=== PATIENT | male | born 1990 | race Caucasian/White ===

== ENCOUNTER 2017-05-23 19:12 | Observation (INO) | payer MEDICAID ==
[2017-05-23] MEDS ORDERED: Sodium Chloride 0.9% 1,000 ML IV ONE (21:12)
--- NOTE | 2017-05-23 21:12 | C.PDOC ---
History Of Present Illness 26 year old male, whose PMHx includes Crohn's disease, presents to the ED for evaluation of abdominal pain which began a few days ago. Patient states he has been noncompliant with his medications. He denies fever, chills, vomiting, bloody stools. Time Seen by Provider: 05/23/17 21:05 Chief Complaint (Nursing): Abdominal Pain History Per: Patient History/Exam Limitations: no limitations Onset/Duration Of Symptoms: Days Current Symptoms Are (Timing): Still Present Location Of Pain/Discomfort: Diffuse Quality Of Discomfort: "Pain" Associated Symptoms: denies: Fever, Chills, Vomiting Additional History Per: Patient Past Medical History Reviewed: Historical Data, Nursing Documentation, Vital Signs Vital Signs: Last Vital Signs Temp 98.2 F 05/23/17 22:50 Pulse 69 05/23/17 22:50 Resp 20 05/23/17 22:50 BP 98/62 L 05/23/17 22:50 Pulse Ox 98 05/24/17 00:41 - Medical History PMH: Crohn's Disease Surgical History: No Surg Hx Family History: States: Unknown Family Hx - Social History Hx Alcohol Use: No Hx Substance Use: Yes - Immunization History Hx Tetanus Toxoid Vaccination: No Hx Influenza Vaccination: No Hx Pneumococcal Vaccination: No Review Of Systems Constitutional: Negative for: Fever, Chills Gastrointestinal: Positive for: Abdominal Pain. Negative for: Vomiting, Hematochezia Physical Exam - Physical Exam Appears: Non-toxic, No Acute Distress Skin: Normal Color, Warm, Dry Head: Atraumatic, Normacephalic Eye(s): bilateral: Normal Inspection Oral Mucosa: Moist Neck: Supple Chest: Symmetrical, No Deformity, No Tenderness Cardiovascular: Rhythm Regular, No Murmur Respiratory: Normal Breath Sounds, No Rales, No Rhonchi, No Wheezing Gastrointestinal/Abdominal: Soft, Tenderness (mild, nonfocal ), No Guarding, No Rebound Extremity: Normal ROM, Capillary Refill (less than 2 seconds ) Neurological/Psych: Oriented x3, Normal Speech, Normal Cognition ED Course And Treatment - Laboratory Results Result Diagrams: 05/23/17 21:23 05/23/17 21:23 O2 Sat by Pulse Oximetry: 98 (on RA) Pulse Ox Interpretation: Normal - CT Scan/US CT abd/pelvis Other Rad Studies (CT/US): Read By Radiologist, Radiology Report Reviewed CT/US Interpretation: FINDINGS: Lower thorax: No acute findings. . ABDOMEN: Liver: Unremarkable. No mass. Gallbladder and bile ducts: Unremarkable. No calcified stones. No ductal. dilation. Pancreas: Unremarkable. No mass. No ductal dilation. Spleen: Unremarkable. No splenomegaly. Adrenals: Unremarkable. No mass. Kidneys and ureters: Unremarkable. No solid mass. No hydronephrosis. Stomach and bowel: Fluid-filled small bowel loops, some of which are. prominent. Fluid in right colon. Appendix: Retrocecal appendix. . PELVIS: Bladder: Unremarkable. No mass. Reproductive: Unremarkable as visualized. . ABDOMEN and PELVIS: Intraperitoneal space: Small amount of free fluid in pelvis. No free air. Bones/joints: No acute fracture. No dislocation. Soft tissues: Unremarkable. Vasculature: Unremarkable. No abdominal aortic aneurysm. Lymph nodes: Few mildly enlarged right lower quadrant mesenteric lymph nodes. . IMPRESSION: 1. Nonspecific fluid-filled small bowel loops and right colon. Enlarged. mesenteric lymph nodes. Findings consistent with enteritis. 2. Small amount of pelvic ascites. 3. Remainder of findings as above. . Dictated By: Curtis Harvey MD. Dictated Date/Time : 05/23/172302. Signed By: Curtis Harvey MD. Date Signed: 05/23/172302. Transcribed By: [employer]. Transcribe Date/Time: 05/23/172302 - Physician Consult Information Time Consulting Physician Contacted: 23:49 Physician Contacted: Maria Dolores Abkar Outcome Of Conversation: patient accepted for admission for enteritis, IBD Medical Decision Making Medical Decision Making: r/o ibd flare- labs iamging reassess Progress: Bloodwork, urinalysis, CT A/P ordered and reviewed. Toradol IVP and IV Fluids administered. pt reassesed pain improved. case discusse solomon wright. accepts with gi consult for ibd flare. no outpt support or followup Disposition Counseled Patient/Family Regarding: Studies Performed, Diagnosis - Disposition Disposition: HOSPITALIZED Disposition Time: 23:50 Condition: STABLE - Clinical Impression Clinical Impression: IBD (inflammatory bowel disease), Enteritis - Scribe Statement The provider has reviewed the documentation as recorded by the Scribe (Stefania Taylor) Provider Attestation: All medical record entries made by the Scribe were at my direction and personally dictated by me. I have reviewed the chart and agree that the record accurately reflects my personal performance of the history, physical exam, medical decision making, and the department course for this patient. I have also personally directed, reviewed, and agree with the discharge instructions and disposition. Decision To Admit - Pt Status Changed To: Hospital Disposition Of: Observation - InPatient: Physician Admission Certification:: needs gi eval iv steriods - . Bed Request Type: Regular Admitting Physician: Maria Dolores Akbar Patient Diagnosis: IBD (inflammatory bowel disease), Enteritis
[2017-05-23 21:27] LABS: BASO % 0.3 % (0.0-2.0); EOS # 0.1 K/uL (0.0-0.7); EOS % 0.6 % (0.0-4.0); HEMOGLOBIN 12.8 g/dL (12.0-18.0); LYMPH # 1.6 K/uL (1.0-4.3); LYMPH % 14.7 % (20.0-40.0); MEAN CELL VOLUME 81.2 fL (80.0-94.0); MEAN CORPUSCULAR HEMOGLOBIN 27.2 pg (27.0-31.0); MEAN CORPUSCULAR HGB CONC 33.5 g/dL (33.0-37.0); MEAN PLATELET VOLUME 7.7 fL (7.2-11.7); MONO # 0.6 K/uL (0.0-0.8); MONO % 5.3 % (0.0-10.0); NEUT # 8.6 K/uL (1.8-7.0); NEUT % 79.1 % (50.0-75.0); RBC 4.71 Mil/uL (4.40-5.90); RED CELL DISTRIBUTION WIDTH 14.3 % (11.5-14.5); WHITE BLOOD COUNT 10.9 K/uL (4.8-10.8)
[2017-05-23 21:34] LABS: INR 1.1; PROTHROMBIN TIME 12.8 SECONDS (9.7-12.2)
[2017-05-23 21:38] LABS: ALB/GLOB RATIO 1.4 (1.0-2.1); ALBUMIN 3.8 g/dL (3.5-5.0); ALT/SGPT 24 U/L (21-72); AST/SGOT 19 U/L (17-59); BLOOD UREA NITROGEN 13 mg/dL (9-20); CALCIUM 8.7 mg/dl (8.6-10.4); GFR AFRICAN-AMERICAN > 60; GFR NON-AFRICAN AMERICAN > 60; LIPASE 48 U/L (23-300)
[2017-05-23] MEDS ORDERED: Iohexol 350mg/ml 100 ML ONE (22:02)
--- NOTE | 2017-05-23 23:03 | CT ---
EXAM: CT Abdomen and Pelvis With Intravenous Contrast CLINICAL HISTORY: 26 years old, male; Pain; Abdominal pain; Periumbilical; Additional info: Abd pain, diarrhea h/o of ibd TECHNIQUE: Axial computed tomography images of the abdomen and pelvis with intravenous contrast. All CT scans at this facility use one or more dose reduction techniques, viz.: automated exposure control; ma/kV adjustment per patient size (including targeted exams where dose is matched to indication; i.e. head); or iterative reconstruction technique. Coronal and sagittal reformatted images were created and reviewed. CONTRAST: 100 mL of OMN IPAQUE 350 administered intravenously. COMPARISON: No relevant prior studies available. FINDINGS: Lower thorax: No acute findings. ABDOMEN: Liver: Unremarkable. No mass. Gallbladder and bile ducts: Unremarkable. No calcified stones. No ductal dilation. Pancreas: Unremarkable. No mass. No ductal dilation. Spleen: Unremarkable. No splenomegaly. Adrenals: Unremarkable. No mass. Kidneys and ureters: Unremarkable. No solid mass. No hydronephrosis. Stomach and bowel: Fluid-filled small bowel loops, some of which are prominent. Fluid in right colon. Appendix: Retrocecal appendix. PELVIS: Bladder: Unremarkable. No mass. Reproductive: Unremarkable as visualized. ABDOMEN and PELVIS: Intraperitoneal space: Small amount of free fluid in pelvis. No free air. Bones/joints: No acute fracture. No dislocation. Soft tissues: Unremarkable. Vasculature: Unremarkable. No abdominal aortic aneurysm. Lymph nodes: Few mildly enlarged right lower quadrant mesenteric lymph nodes. IMPRESSION: 1. Nonspecific fluid-filled small bowel loops and right colon. Enlarged mesenteric lymph nodes. Findings consistent with enteritis. 2. Small amount of pelvic ascites. 3. Remainder of findings as above.
[2017-05-23 23:04] LABS: URINE BILIRUBIN NEGATIVE (NEGATIVE); URINE BLOOD NEGATIVE (NEGATIVE); URINE CLARITY Clear (Clear); URINE COLOR Yellow (YELLOW); URINE GLUCOSE (UA) NORMAL (Normal); URINE LEUKOCYTE ESTERASE NEG Leu/uL (Negative); URINE PROTEIN NEGATIVE (NEGATIVE); URINE UROBILINOGEN NORMAL mg/dL (0.2-1.0)
[2017-05-23] MEDS ORDERED: MethylPREDNISolone 40 mg Vial IVP STA (23:13)
[2017-05-23] MEDS ORDERED: Piperacillin/Tazobact 3.375 gm 100 ML IVPB ONE (23:38)
[2017-05-23] MEDS: Piperacillin/Tazobact 3.375 GM in Sodium Chloride 100 ML IVPB SCH (23:40)
[2017-05-24 01:08] VITALS: RESP 20
[2017-05-24] MEDS ORDERED: Sodium Chloride 0.9% 1,000 ML IV SCH (01:45)
[2017-05-24] MEDS: Piperacillin/Tazobact 3.375 GM in Sodium Chloride 100 ML IVPB SCH ×2 (05:45→10:41)
--- NOTE | 2017-05-24 11:14 | CP.PCM.CON ---
History of Present Illness - History of Present Illness History of Present Illness: initial GI Consult Emanuel Barnard is a 26 year old male w/ hx of Crohn's disease, presents to the ED for evaluation of abdominal pain. He states that his pain started yesterday after consuming some nuts. He states that the pain was 8 out of 10 and located around the periumbilical area. He decribed the pain as campy and similar to his "crohn's pain." He states that since his admission, his pain has improved. He notes having 5-6 loose BM daily (which is since normal). denies any fever, chills or diaphoresis. He states that he was diagnosed with Crohn's in 2013 at [facility]. He was told to take prednisone 20mg daily for 2 weeks and start pentasa. Pt noted noncompliance with both medication and no follow-up since diagnosis. He states that he gets daily mild abd pain for which he self medicated with marijuana. He denies any recent travel, sick contacts. Denies any NSAID use. He admits to intermittent blood in his stool in the past but not currently. PMHx: Crohn's PSHx: none Endo Hx: colonoscopy 2013 (diag w/ crohns) Familly hx: Father: pancreatic ca? Social hx 1/2 PPD for 9 years, daily marijuana use, denies any ETOH use ROS: 12 point ROS conducted, neg other than above Past Patient History - Infectious Disease Hx of Infectious Diseases: None - Past Social History Smoking Status: Heavy Smoker > 10 Cigarettes Daily - GASTROINTESTINAL Hx Crohn's Disease: Yes - PSYCHIATRIC Hx Substance Use: Yes - SURGICAL HISTORY Hx Surgeries: No - ANESTHESIA Hx Anesthesia: No Meds Allergies/Adverse Reactions: Allergies Allergy/AdvReac Type Severity Reaction Status Date / Time No Known Allergies Allergy Unverified 05/23/17 19:29 - Medications Medications: Current Medications Piperacillin Sod/Tazobactam (Sod 3.375 gm/ Sodium Chloride) 100 mls @ 200 mls/ hr IVPB Q6H ASHWIN PRN Reason: Protocol Last Admin: 05/24/17 10:41 Dose: 200 mls/hr Sodium Chloride (Sodium Chloride 0.9%) 1,000 mls @ 60 mls/hr IV .[id number] [facility] Last Admin: 05/24/17 02:00 Dose: 60 mls/hr Ketorolac Tromethamine (Toradol) 15 mg IVP Q6 PRN PRN Reason: Pain, moderate (4-7) Pneumococcal Polyvalent Vaccine (Pneumovax 23 Vaccine) 0.5 ml IM .ONCE ONE Stop: 05/25/17 10:52 Physical Exam - Constitutional Appears: Well, No Acute Distress - Head Exam Head Exam: ATRAUMATIC, NORMOCEPHALIC - Eye Exam Eye Exam: Normal appearance - ENT Exam ENT Exam: Mucous Membranes Moist, Normal Exam - Neck Exam Neck exam: Positive for: Normal Inspection - Respiratory Exam Respiratory Exam: Clear to Auscultation Bilateral, NORMAL BREATHING PATTERN. absent: Rales, Rhonchi, Wheezes, Respiratory Distress - Cardiovascular Exam Cardiovascular Exam: REGULAR RHYTHM, +S1, +S2 - GI/Abdominal Exam GI & Abdominal Exam: Normal Bowel Sounds, Soft, Tenderness (periumbilical). absent: Distended, Firm, Guarding, Hernia - Neurological Exam Neurological exam: Alert, Normal Gait, Oriented x3 - Psychiatric Exam Psychiatric exam: Normal Affect, Normal Mood - Skin Skin Exam: Dry, Intact, Normal Color, Warm Results - Vital Signs Recent Vital Signs: Last Vital Signs Temp 97.5 F L 05/24/17 07:42 Pulse 68 05/24/17 07:42 Resp 20 05/24/17 07:42 BP 96/58 L 05/24/17 07:42 Pulse Ox 99 05/24/17 07:42 - Labs Result Diagrams: 05/23/17 21:23 05/23/17 21:23 Labs: Laboratory Results - last 24 hr 05/23/17 05/23/17 05/23/17 21:23 21:23 21:23 WBC 10.9 H RBC 4.71 Hgb 12.8 Hct 38.2 MCV 81.2 MCH 27.2 MCHC 33.5 RDW 14.3 Plt Count 331 MPV 7.7 Neut % (Auto) 79.1 H Lymph % (Auto) 14.7 L [place] % (Auto) 5.3 Eos % (Auto) 0.6 Baso % (Auto) 0.3 Neut # (Auto) 8.6 H Lymph # (Auto) 1.6 [place] # (Auto) 0.6 Eos # (Auto) 0.1 Baso # (Auto) 0.0 PT 12.8 H INR 1.1 APTT 33 Sodium 142 Potassium 3.7 Chloride 101 Carbon Dioxide 27 Anion Gap 17 BUN 13 Creatinine 0.8 Est GFR ( Amer) > 60 Est GFR (Non-Af Amer) > 60 Random Glucose 84 Calcium 8.7 Total Bilirubin 0.4 AST 19 ALT 24 Alkaline Phosphatase 45 Total Protein 6.6 Albumin 3.8 Globulin 2.8 Albumin/Globulin Ratio 1.4 Lipase 48 Urine Color Urine Clarity Urine pH Ur Specific [place] Urine Protein Urine Glucose (UA) Urine Ketones Urine Blood Urine Nitrate Urine Bilirubin Urine Urobilinogen Ur Leukocyte Esterase Urine WBC (Auto) Urine RBC (Auto) 05/23/17 22:51 WBC RBC Hgb Hct MCV MCH MCHC RDW Plt Count MPV Neut % (Auto) Lymph % (Auto) [place] % (Auto) Eos % (Auto) Baso % (Auto) Neut # (Auto) Lymph # (Auto) [place] # (Auto) Eos # (Auto) Baso # (Auto) PT INR APTT Sodium Potassium Chloride Carbon Dioxide Anion Gap BUN Creatinine Est GFR ( Amer) Est GFR (Non-Af Amer) Random Glucose Calcium Total Bilirubin AST ALT Alkaline Phosphatase Total Protein Albumin Globulin Albumin/Globulin Ratio Lipase Urine Color Yellow Urine Clarity Clear Urine pH 6.0 Ur Specific [place] 1.050 H Urine Protein Negative Urine Glucose (UA) Normal Urine Ketones Negative Urine Blood Negative Urine Nitrate Negative Urine Bilirubin Negative Urine Urobilinogen Normal Ur Leukocyte Esterase Neg Urine WBC (Auto) 1 Urine RBC (Auto) 4 H Assessment & Plan - Assessment and Plan (Free Text) Assessment: Emanuel Barnard is a 26M w/ hx of Crohn;s who presents with abd pain. Abd pain etiology gastroenteritis vs crohn's flare Enteritis Chronic Diarrhea Chronic Marijuana use Hx of Crohn's, noncompliant with meds and follow-up Plan: -start on clears -will get stool studies for culture, electrolytes, and c.diff -will hold off on any steriod tx as abd pain is improving - can continue abx - wll eventually need to follow-up as an oupt with GI - will need to be eventualy started on Crohn treatment Will D/W Dr. Marvin
--- NOTE | 2017-05-24 11:18 | CP.PCM.CON ---
History of Present Illness - History of Present Illness History of Present Illness: Surgery Consult: Dr. Fontanez Mr. Barnard is a 26 year old male with PMHx of Crohn's disease who presented to the ED on 05/23 for evaluation of 2 days of abdominal pain. He states he was diagnosed with Crohn's in 2013 and was unable to follow up for outpatient care due to insurance loss. He states he last took medications in January 2015. He currently complains of non-bloody diarrhea and abdominal pain. He states he "always has diarrhea, and it's had blood in the past, but no blood recently." He also reports improvement in his pain since admission. He denies fever/chills , chest pain, shortness of breath, nausea, vomiting, constipation. His last colonoscopy was in 2013. He states that "marijuana is the only thing that helps the pain. I smoke a lot of it and it numbs my belly and helps me gain weight." PMHx: Crohn's disease PSHx: colonoscopy (2013) Allergies: NKDA Social history: current smoker, marijuana use; denies alcohol use Review of Systems - Review of Systems All systems: reviewed and no additional remarkable complaints except (as per HPI ) Past Patient History - Infectious Disease Hx of Infectious Diseases: None - Past Social History Smoking Status: Heavy Smoker > 10 Cigarettes Daily - GASTROINTESTINAL Hx Crohn's Disease: Yes - PSYCHIATRIC Hx Substance Use: Yes - SURGICAL HISTORY Hx Surgeries: No - ANESTHESIA Hx Anesthesia: No Meds Allergies/Adverse Reactions: Allergies Allergy/AdvReac Type Severity Reaction Status Date / Time No Known Allergies Allergy Unverified 05/23/17 19:29 - Medications Medications: Current Medications Piperacillin Sod/Tazobactam (Sod 3.375 gm/ Sodium Chloride) 100 mls @ 200 mls/ hr IVPB Q6H ASHWIN PRN Reason: Protocol Last Admin: 05/24/17 10:41 Dose: 200 mls/hr Sodium Chloride (Sodium Chloride 0.9%) 1,000 mls @ 60 mls/hr IV .[id number] [facility] Last Admin: 05/24/17 02:00 Dose: 60 mls/hr Ketorolac Tromethamine (Toradol) 15 mg IVP Q6 PRN PRN Reason: Pain, moderate (4-7) Pneumococcal Polyvalent Vaccine (Pneumovax 23 Vaccine) 0.5 ml IM .ONCE ONE Stop: 05/25/17 10:52 Physical Exam - Constitutional Appears: Well, No Acute Distress - Head Exam Head Exam: ATRAUMATIC, NORMOCEPHALIC - ENT Exam ENT Exam: Mucous Membranes Moist - Respiratory Exam Respiratory Exam: NORMAL BREATHING PATTERN. absent: Accessory Muscle Use, Respiratory Distress - Cardiovascular Exam Cardiovascular Exam: REGULAR RHYTHM, RRR - GI/Abdominal Exam GI & Abdominal Exam: Soft. absent: Distended, Guarding, Tenderness - Extremities Exam Extremities exam: Positive for: normal inspection. Negative for: pedal edema - Neurological Exam Neurological exam: Alert, Oriented x3 - Psychiatric Exam Psychiatric exam: Normal Affect, Normal Mood - Skin Skin Exam: Dry, Intact, Normal Color, Warm Results - Vital Signs Recent Vital Signs: Last Vital Signs Temp 97.5 F L 05/24/17 07:42 Pulse 68 05/24/17 07:42 Resp 20 05/24/17 07:42 BP 96/58 L 05/24/17 07:42 Pulse Ox 99 05/24/17 07:42 - Labs Result Diagrams: 05/23/17 21:23 05/23/17 21:23 Labs: Laboratory Results - last 24 hr 05/23/17 05/23/17 05/23/17 21:23 21:23 21:23 WBC 10.9 H RBC 4.71 Hgb 12.8 Hct 38.2 MCV 81.2 MCH 27.2 MCHC 33.5 RDW 14.3 Plt Count 331 MPV 7.7 Neut % (Auto) 79.1 H Lymph % (Auto) 14.7 L [place] % (Auto) 5.3 Eos % (Auto) 0.6 Baso % (Auto) 0.3 Neut # (Auto) 8.6 H Lymph # (Auto) 1.6 [place] # (Auto) 0.6 Eos # (Auto) 0.1 Baso # (Auto) 0.0 PT 12.8 H INR 1.1 APTT 33 Sodium 142 Potassium 3.7 Chloride 101 Carbon Dioxide 27 Anion Gap 17 BUN 13 Creatinine 0.8 Est GFR ( Amer) > 60 Est GFR (Non-Af Amer) > 60 Random Glucose 84 Calcium 8.7 Total Bilirubin 0.4 AST 19 ALT 24 Alkaline Phosphatase 45 Total Protein 6.6 Albumin 3.8 Globulin 2.8 Albumin/Globulin Ratio 1.4 Lipase 48 Urine Color Urine Clarity Urine pH Ur Specific [place] Urine Protein Urine Glucose (UA) Urine Ketones Urine Blood Urine Nitrate Urine Bilirubin Urine Urobilinogen Ur Leukocyte Esterase Urine WBC (Auto) Urine RBC (Auto) 05/23/17 22:51 WBC RBC Hgb Hct MCV MCH MCHC RDW Plt Count MPV Neut % (Auto) Lymph % (Auto) [place] % (Auto) Eos % (Auto) Baso % (Auto) Neut # (Auto) Lymph # (Auto) [place] # (Auto) Eos # (Auto) Baso # (Auto) PT INR APTT Sodium Potassium Chloride Carbon Dioxide Anion Gap BUN Creatinine Est GFR ( Amer) Est GFR (Non-Af Amer) Random Glucose Calcium Total Bilirubin AST ALT Alkaline Phosphatase Total Protein Albumin Globulin Albumin/Globulin Ratio Lipase Urine Color Yellow Urine Clarity Clear Urine pH 6.0 Ur Specific [place] 1.050 H Urine Protein Negative Urine Glucose (UA) Normal Urine Ketones Negative Urine Blood Negative Urine Nitrate Negative Urine Bilirubin Negative Urine Urobilinogen Normal Ur Leukocyte Esterase Neg Urine WBC (Auto) 1 Urine RBC (Auto) 4 H - Imaging and Cardiology CT scan - abdomen Status: Image reviewed by me, Report reviewed by me Assessment & Plan - Assessment and Plan (Free Text) Assessment: 26 year old male with PMHx of Crohn's disease with improving abdominal pain, likely IBD flare Plan: No surgical intervention at this time Recommend clear liquid diet and advance as tolerated Management as per GI d/w Dr. Huseyin Garay, PGY-3
--- NOTE | 2017-05-24 15:16 | PCM.PSYCH ---
Initial Psychiatric Evaluation - Initial Psychiatric Evaluation Type of Admission: Voluntary Legal Status: Capacity Chief Complaint (in patient's own words): Chronic Marijuana Use History of Present Illness and Precipitating Events: This is a 26 year old male, an unemployed male who lives with his cousins, with a PMHx of Chron's Disease, who presented to the ED for abdominal pain due to his Chron's Disease. Patient states he uses Marijuana, 7-8 blunts per day, on a daily basis to help with the pain associated with his Chron's Disease. He states the marijuana makes him feel more relaxed and it takes away the pain. The marijuana also helps improve his appetite so he is able to sleep. Patient states he feels anxious when he does not smoke a blunt for awhile. Patient denies use of any other illicit substance, such as heroin or cocaine. Patient stated he stopped consuming alcohol when he was diagnosed with Chron's Disease in 2013. He states that he feels depressed sometimes due to his inability to work. He is unable to work due to constantly having to use the bathroom. Patient denies any suicidal ideations, feelings of paranoia, visual hallucinations, or auditory hallucinations. Patient states he has never been hospitalized for psychiatric reasons before in the past. PMHx: Chron's Disease (2013) PSH: Colonoscopy Allergies: denies Medications: denies Social HX: Lives with his cousin. Currently unable to work. Denies alcohol use currently; stopped consuming alcohol when diagnosed with IBD. Smokes marijuana 7 -8 blunts per day. Consumes 5-6 cans of Redbull per day. Denies heroin and cocaine use. Uses tobacco products; 1/2 pack per day for 9 years. Current Medications: Active Medications Generic Name Dose Route Start Last Admin Trade Name Freq PRN Reason Stop Dose Admin Piperacillin Sod/Tazobactam 100 mls @ 200 mls/hr 05/23/17 23:15 05/24/17 10: 41 Sod 3.375 gm/ Sodium Chloride IVPB 200 mls/hr Q6H ASHWIN Administration Protocol Sodium Chloride 1,000 mls @ 60 mls/hr 05/24/17 01:45 05/24/17 02:00 Sodium Chloride 0.9% IV 60 mls/hr .[id number] ASHWIN Administration Ketorolac Tromethamine 15 mg 05/24/17 01:30 Toradol IVP Q6 PRN Pain, moderate (4-7) Pneumococcal Polyvalent Vaccine 0.5 ml 05/25/17 10:51 Pneumovax 23 Vaccine IM 05/25/17 10:52 .ONCE ONE Past Psychiatric History - Past Psychiatric History Previous Treatment History: None History of ETOH/Drug Use: Denies alcohol use Marijuana Use, 7-8 blunts per day. Pertinent Medical Hx (Current Medical&Sleep Prob, Allergies): Allergies Allergy/AdvReac Type Severity Reaction Status Date / Time No Known Allergies Allergy Unverified 05/23/17 19:29 No Known Home Med 05/23/17 Review of Systems - Review of Systems All systems: reviewed and no additional remarkable complaints except - Psychiatric Psychiatric: Anxiety, Depression. absent: Auditory Hallucinations, Difficulty Concentrating, Homicidal Ideation, Suicidal Ideation, Visual Hallucinations, Tactile Hallucinations Mental Status Examination - Personal Presentation Personal Presentation: Looks stated age - Affect Affect: Broad - Motor Activity Motor Activity: Calm - Reliability in Providing Information Reliability in Providing Information: Good - Speech Speech: Organized - Mood Mood: Neutral - Formal Thought Process Formal Thought Process: No Impairment - Obsessions/Compulsions Obsessions: No Compulsions: No - Cognitive Functions Orientation: Person, Place, Situation, Time Sensorium: Alert Attention/Concentration: Attentive Abstract Thinking: [place] Estimate of Intelligence: Below average Judgement: Imparied, as evidence by: Lack of insight into illness, Intact, as evidence by: Good judgement - Strength & Assets Inventory Strength & Assets Inventory: Family support DSM 5 DX - DSM 5 DSM 5 Diagnosis: Opioid use disorder severe Depressive disorder - Recommended/Plan of Treatment Treatment Recommendations and Plan of Treatment: Opioid use disorder severe CBT Psychoeducation Supportive therapy, individual therapy Use CA for abstinence Depressive disorder CBT Psychoeducation Supportive therapy, individual therapy Pt psychiatrically stale and clear for discharge. - Smoking Cessation Smoking Cessation Initiated: No
[2017-05-25] MEDS ORDERED: Influenza Vaccine 60 mcg/0.5 mL SYR (4YR UP) IM ONE (10:00)
[2017-05-25] MEDS ORDERED: Pneumococcal 23-Valent Vaccine IM ONE (10:51)
[2017-05-25 11:13] VITALS: BP 96/57; PULSE 77; TEMP 98.2; O2SAT 98
== END 2017-05-24 18:25 | disposition left against medical advice (07) ==
LOC: C.ER 19:12 → SUPCPDRO 19:12 → C.9E 23:49 → C.3T 05-24 00:03
PROVIDERS: ADMIT Internal Medicine; ATTEND Internal Medicine
DX: K50.90 Crohn's disease, unspecified, without complications (principal); Z91.14 Patient's other noncompliance with medication regimen; F12.20 Cannabis dependence, uncomplicated; F32.9 Major depressive disorder, single episode, unspecified; F41.9 Anxiety disorder, unspecified; F11.20 Opioid dependence, uncomplicated; Z91.19 Patient's noncompliance with other medical treatment and regimen; F17.210 Nicotine dependence, cigarettes, uncomplicated
CPT/HCPCS: 74177; 80053; 81001; 83690; 85025; 85610; 85730; 87040; 96360; 96365; 96374; G0378; J1885; J2543; J2920; J7040; J7050; Q9967

== ENCOUNTER 2017-07-17 19:47 | Inpatient (IN) | payer MEDICAID ==
[2017-07-17 21:21] LABS: BASO % 0.5 % (0.0-2.0); EOS % 0.3 % (0.0-4.0); HEMOGLOBIN 13.9 g/dL (12.0-18.0); LYMPH % 19.4 % (20.0-40.0); MEAN CELL VOLUME 81.2 fL (80.0-94.0); MEAN CORPUSCULAR HEMOGLOBIN 27.8 pg (27.0-31.0); MEAN CORPUSCULAR HGB CONC 34.2 g/dL (33.0-37.0); MEAN PLATELET VOLUME 8.9 fL (7.2-11.7); MONO # 0.5 K/uL (0.0-0.8); MONO % 4.7 % (0.0-10.0); NEUT # 7.9 K/uL (1.8-7.0); NEUT % 75.1 % (50.0-75.0); RBC 5.01 Mil/uL (4.40-5.90); RED CELL DISTRIBUTION WIDTH 15.4 % (11.5-14.5); WHITE BLOOD COUNT 10.5 K/uL (4.8-10.8)
[2017-07-17 21:33] LABS: ALB/GLOB RATIO 1.4 (1.0-2.1); ALT/SGPT 36 U/L (21-72); AST/SGOT 28 U/L (17-59); BLOOD UREA NITROGEN 11 mg/dL (9-20); CALCIUM 9.3 mg/dl (8.6-10.4); GFR AFRICAN-AMERICAN > 60; GFR NON-AFRICAN AMERICAN > 60; LIPASE 51 U/L (23-300)
[2017-07-17] MEDS ORDERED: Aluminum Hydroxide/Magnesium Hydroxide Susp (30 mL) PO STA (22:25)
[2017-07-17] MEDS ORDERED: Sodium Chloride 0.9% 1,000 ML IV ONE (22:25)
[2017-07-17] MEDS ORDERED: Iodixanol 320 MG/ML 100 ML BOTTLE IV ONE (22:41)
[2017-07-17] MEDS ORDERED: Aluminum Hydroxide/Magnesium Hydroxide Susp (30 mL) ONE (22:43)
[2017-07-17] MEDS ORDERED: Sodium Chloride 0.9% 1,000 ML ONE (22:43)
[2017-07-17 23:00] LABS: SQUAMOUS EPITHIAL < 1 /hpf (0-5); URINE BILIRUBIN NEGATIVE (NEGATIVE); URINE BLOOD NEGATIVE (NEGATIVE); URINE CLARITY Clear (Clear); URINE COLOR Yellow (YELLOW); URINE GLUCOSE (UA) NORMAL (Normal); URINE LEUKOCYTE ESTERASE NEG Leu/uL (Negative); URINE PROTEIN NEGATIVE (NEGATIVE); URINE UROBILINOGEN NORMAL mg/dL (0.2-1.0)
[2017-07-17 23:14] LABS: BARBITURATES, UR NEGATIVE (NEGATIVE); BENZODIAZEPINES, UR NEGATIVE (NEGATIVE); OPIATES, UR NEGATIVE (NEGATIVE); PHENCYCLIDINE, UR NEGATIVE (NEGATIVE)
--- NOTE | 2017-07-17 23:44 | C.PDOC ---
History Of Present Illness 26 year old male with a history of Crohn's disease presents to the emergency department with complaints of nausea, vomiting, and loose stool for the last two days associated with diffuse abdominal pain. Patient was diagnosed with Crohn's disease in 2013, and since moving from [facility], was treated at [facility] in the past, and has not established follow up care since.Patient states he has been on a series of medications, but since running out of them two years ago. Medications as listed were Colicalciferol, iron tablets, Pentasa 500mg XR, Pepcid, Prednisone, and percocet. Patient was diagnosed with enteritis on 05-23-17. Time Seen by Provider: 07/17/17 21:57 Chief Complaint (Nursing): Abdominal Pain History Per: Patient History/Exam Limitations: no limitations Onset/Duration Of Symptoms: Days (2) Quality Of Discomfort: "Pain" Associated Symptoms: Nausea, Vomiting, Other (loose stool ) Past Medical History Reviewed: Historical Data, Nursing Documentation, Vital Signs Vital Signs: Last Vital Signs Temp 97.8 F 07/18/17 00:49 Pulse 63 07/18/17 00:49 Resp 18 07/18/17 00:49 BP 90/58 L 07/18/17 00:49 Pulse Ox 99 07/18/17 00:49 - Medical History PMH: Crohn's Disease Surgical History: No Surg Hx Family History: States: No Known Family Hx - Social History Hx Alcohol Use: No Hx Substance Use: Yes - Immunization History Hx Tetanus Toxoid Vaccination: No Hx Influenza Vaccination: No Hx Pneumococcal Vaccination: No Review Of Systems Except As Marked, All Systems Reviewed And Found Negative. Constitutional: Negative for: Fever, Chills Eyes: Negative for: Pain, Vision Change ENT: Negative for: Ear Pain, Ear Discharge Cardiovascular: Negative for: Chest Pain, Palpitations, Orthopnea Respiratory: Negative for: Cough, Hemoptysis, SOB with Excertion, Pleuritic Pain Gastrointestinal: Positive for: Nausea, Vomiting, Abdominal Pain, Other (loose stool) Genitourinary: Negative for: Dysuria, Frequency, Incontinence Musculoskeletal: Negative for: Neck Pain, Shoulder Pain, Arm Pain Skin: Negative for: Rash Neurological: Negative for: Weakness, Numbness, Incoordination Psych: Negative for: Anxiety, Depression Physical Exam - Physical Exam Appears: Non-toxic, No Acute Distress Skin: Normal Color, Warm, Dry Head: Atraumatic, Normacephalic Eye(s): bilateral: Normal Inspection, PERRL, EOMI Nose: Normal Oral Mucosa: Moist Neck: Supple Cardiovascular: Rhythm Regular, No Murmur Respiratory: Normal Breath Sounds, No Rales, No Rhonchi, No Wheezing Gastrointestinal/Abdominal: Normal Exam, Soft, No Tenderness, No Distention Extremity: Normal ROM, No Tenderness Neurological/Psych: Oriented x3, Normal Speech, Normal Cognition ED Course And Treatment - Laboratory Results Result Diagrams: 07/17/17 21:15 07/17/17 21:15 O2 Sat by Pulse Oximetry: 98 (RA) Pulse Ox Interpretation: Normal Medical Decision Making Medical Decision Making: Plan: CT Abdomen and Pelvis CMP Drug Screen Lipase CBC Maalox 30ml PO Protonix 40mg IVP Reglan 10mg IVP NaCl IV Fluids Toradol 15mg IVP Urinalysis Results: Chemistry unremarkable pt with enteritis on ct scan. will require admission for crohn's flare.case turned over to Dr. Barrientos. Disposition Counseled Patient/Family Regarding: Diagnosis - Disposition Disposition: HOSPITALIZED Disposition Time: 01:20 Condition: FAIR Forms: [employer] (Setswana) - Clinical Impression Clinical Impression: Abdominal pain, Crohns disease of small intestine - Scribe Statement The provider has reviewed the documentation as recorded by the Scribe (Juan Pablo Haider) Provider Attestation: All medical record entries made by the Scribe were at my direction and personally dictated by me. I have reviewed the chart and agree that the record accurately reflects my personal performance of the history, physical exam, medical decision making, and the department course for this patient. I have also personally directed, reviewed, and agree with the discharge instructions and disposition.
--- NOTE | 2017-07-18 01:07 | CT ---
EXAM: CT Abdomen and Pelvis With Intravenous Contrast CLINICAL HISTORY: 26 years old, male; Pain; Abdominal pain; Patient HX: 3-318 images sent; Additional info: Abd pain TECHNIQUE: Axial computed tomography images of the abdomen and pelvis with intravenous contrast. All CT scans at this facility use one or more dose reduction techniques, viz.: automated exposure control; ma/kV adjustment per patient size (including targeted exams where dose is matched to indication; i.e. head); or iterative reconstruction technique. Coronal and sagittal reformatted images were created and reviewed. CONTRAST: 100 mL of [id number] administered intravenously. COMPARISON: No relevant prior studies available. FINDINGS: Limitations: Motion artifact - mild. Lung bases: No acute findings. ABDOMEN: Liver: Unremarkable. No mass. Gallbladder and bile ducts: No calcified stones. No ductal dilation. Pancreas: Annular pancreas. No ductal dilation. Spleen: No splenomegaly. Adrenals: No mass. Kidneys and ureters: No mass. No hydronephrosis. Stomach and bowel: Fluid within small bowel. Fluid/loose stool within RIGHT colon. Moderate mural thickening of terminal ileum. No obstruction. PELVIS: Appendix: No findings to suggest acute appendicitis. Bladder: Unremarkable. Reproductive: Unremarkable as visualized. ABDOMEN and PELVIS: Intraperitoneal space: Trace free fluid within pelvis. No free air. Bones/joints: No acute fracture. Soft tissues: Unremarkable. Vasculature: Unremarkable. No aneurysm. Lymph nodes: No pathologically enlarged lymph nodes. IMPRESSION: 1. Enteritis, nonspecific. Consider inflammatory or infectious etiologies. 2. Incidental/non-acute findings are described above.
--- NOTE | 2017-07-18 02:36 | CP.PCM.HP ---
<Issa Rojas - Last Filed: 07/18/17 02:40> History of Present Illness - History of Present Illness History of Present Illness: This is a 26 yo male with past medical hx of Crohn's disease dx in 2013, presenting today with abdominal day x 1 day. Began worsening today. Pt says he has chronic pain for years now and rarely has a pain free day. Describes sensation as burning. Diffusely located across abdomen. Denies scrotal/ testicular pain. Had one episode of diarrhea today. No fevers or chills. Diagnosed with Crohn's in 2013, had colonoscopy. Did not take his prescribed meds and did not follow up with GI or PMD. Does not use pain meds but uses marijuana daily to help cope with sx. Denies any urinary symptoms. Not sexually active. PMH: Crohn's disease, vitamin D deficiency PSH: Denies Allergies: NKDA FH: Denies Home meds: none PMD: None Social hx: non smoker. denies drinking. Uses marijuana daily. Lives with sister. Born in . Not currently working. Present on Admission - Present on Admission Any Indicators Present on Admission: No History of DVT/PE: No History of Uncontrolled Diabetes: No Urinary Catheter: No Decubitus Ulcer Present: No Review of Systems - Review of Systems All systems: reviewed and no additional remarkable complaints except Review of Systems: negative except per HPI. Past Patient History - Infectious Disease Hx of Infectious Diseases: None - Past Medical History & Family History Past Medical History?: Yes Past Family History: Reviewed and not pertinent - Past Social History Smoking Status: Heavy Smoker > 10 Cigarettes Daily Chewing Tobacco Use: No Cigar Use: No Alcohol: None Drugs: Cannabis Home Situation {Lives}: With Family Domestic Violence: Negative - GASTROINTESTINAL Hx Crohn's Disease: Yes - PSYCHIATRIC Hx Substance Use: Yes - SURGICAL HISTORY Hx Surgeries: No - ANESTHESIA Hx Anesthesia: No Meds Allergies/Adverse Reactions: Allergies Allergy/AdvReac Type Severity Reaction Status Date / Time No Known Allergies Allergy Verified 07/17/17 20:17 Physical Exam - Constitutional Appears: Non-toxic, No Acute Distress - Head Exam Head Exam: ATRAUMATIC, NORMAL INSPECTION, NORMOCEPHALIC - Eye Exam Eye Exam: EOMI - ENT Exam ENT Exam: Mucous Membranes Moist - Respiratory Exam Respiratory Exam: NORMAL BREATHING PATTERN. absent: Respiratory Distress - Cardiovascular Exam Cardiovascular Exam: +S1, +S2 - GI/Abdominal Exam GI & Abdominal Exam: Tenderness Additional comments: very mildly tender left upper quadrant and left lower - Extremities Exam Extremities exam: Positive for: full ROM, normal inspection - Neurological Exam Neurological exam: Alert, CN II-XII Intact, Oriented x3 - Psychiatric Exam Psychiatric exam: Normal Affect, Normal Mood - Skin Skin Exam: Dry, Intact, Normal Color, Warm Results - Vital Signs Recent Vital Signs: Last Vital Signs Temp 97.8 F 07/18/17 00:49 Pulse 63 07/18/17 00:49 Resp 18 07/18/17 00:49 BP 90/58 L 07/18/17 00:49 Pulse Ox 98 07/18/17 01:21 - Labs Result Diagrams: 07/17/17 21:15 07/17/17 21:15 Labs: Laboratory Results - last 24 hr 07/17/17 07/17/17 07/17/17 21:15 21:15 22:56 WBC 10.5 RBC 5.01 Hgb 13.9 Hct 40.6 MCV 81.2 MCH 27.8 MCHC 34.2 RDW 15.4 H Plt Count 342 MPV 8.9 Neut % (Auto) 75.1 H Lymph % (Auto) 19.4 L Daniels % (Auto) 4.7 Eos % (Auto) 0.3 Baso % (Auto) 0.5 Neut # (Auto) 7.9 H Lymph # (Auto) 2.0 Daniels # (Auto) 0.5 Eos # (Auto) 0.0 Baso # (Auto) 0.0 Sodium 138 Potassium 3.4 L Chloride 101 Carbon Dioxide 27 Anion Gap 14 BUN 11 Creatinine 0.7 L Est GFR ( Amer) > 60 Est GFR (Non-Af Amer) > 60 Random Glucose 86 Calcium 9.3 Total Bilirubin 0.4 AST 28 ALT 36 Alkaline Phosphatase 58 Total Protein 7.0 Albumin 4.0 Globulin 2.9 Albumin/Globulin Ratio 1.4 Lipase 51 Urine Color Yellow Urine Clarity Clear Urine pH 7.0 Ur Specific [place] 1.013 Urine Protein Negative Urine Glucose (UA) Normal Urine Ketones Negative Urine Blood Negative Urine Nitrate Negative Urine Bilirubin Negative Urine Urobilinogen Normal Ur Leukocyte Esterase Neg Urine WBC (Auto) < 1 Urine RBC (Auto) < 1 Ur Squamous Epith Cells < 1 Urine Opiates Screen Urine Methadone Screen Ur Barbiturates Screen Ur Phencyclidine Scrn Ur Amphetamines Screen U Benzodiazepines Scrn U Oth Cocaine Metabols U Cannabinoids Screen 07/17/17 22:56 WBC RBC Hgb Hct MCV MCH MCHC RDW Plt Count MPV Neut % (Auto) Lymph % (Auto) Daniels % (Auto) Eos % (Auto) Baso % (Auto) Neut # (Auto) Lymph # (Auto) Daniels # (Auto) Eos # (Auto) Baso # (Auto) Sodium Potassium Chloride Carbon Dioxide Anion Gap BUN Creatinine Est GFR ( Amer) Est GFR (Non-Af Amer) Random Glucose Calcium Total Bilirubin AST ALT Alkaline Phosphatase Total Protein Albumin Globulin Albumin/Globulin Ratio Lipase Urine Color Urine Clarity Urine pH Ur Specific [place] Urine Protein Urine Glucose (UA) Urine Ketones Urine Blood Urine Nitrate Urine Bilirubin Urine Urobilinogen Ur Leukocyte Esterase Urine WBC (Auto) Urine RBC (Auto) Ur Squamous Epith Cells Urine Opiates Screen Negative Urine Methadone Screen Negative Ur Barbiturates Screen Negative Ur Phencyclidine Scrn Negative Ur Amphetamines Screen Negative U Benzodiazepines Scrn Negative U Oth Cocaine Metabols Negative U Cannabinoids Screen Positive H Assessment & Plan - Assessment and Plan (Free Text) Assessment: This is a 26 yo male with hx of Crohn's presenting with abdominal pain worsening over 1 day 1. Abdominal pain -likely secondary to Crohn's flare -abdomen/pelvis shows thickening of the ileum/enteritis -likely mild disease - step up therapy indicated -will start prednisone 50 mg PO daily -toradol IV for pain -will check CRP -fecal calprotectin pending -GI consult. Dr. Valdes. recs appreciated. -zofran for nausea -stool studies 2. GI/DVT ppx -lovenox -protonix <Jose Elias Hui - Last Filed: 07/18/17 19:16> Results - Vital Signs Recent Vital Signs: Last Vital Signs Temp 97.8 F 07/18/17 08:07 Pulse 85 07/18/17 08:07 Resp 20 07/18/17 08:07 BP 112/72 07/18/17 08:53 Pulse Ox 97 07/18/17 08:07 - Labs Result Diagrams: 07/18/17 04:00 07/18/17 04:00 Labs: Laboratory Results - last 24 hr 07/17/17 07/17/17 07/17/17 21:15 21:15 22:56 WBC 10.5 RBC 5.01 Hgb 13.9 Hct 40.6 MCV 81.2 MCH 27.8 MCHC 34.2 RDW 15.4 H Plt Count 342 MPV 8.9 Neut % (Auto) 75.1 H Lymph % (Auto) 19.4 L Daniels % (Auto) 4.7 Eos % (Auto) 0.3 Baso % (Auto) 0.5 Neut # (Auto) 7.9 H Lymph # (Auto) 2.0 Daniels # (Auto) 0.5 Eos # (Auto) 0.0 Baso # (Auto) 0.0 Sodium 138 Potassium 3.4 L Chloride 101 Carbon Dioxide 27 Anion Gap 14 BUN 11 Creatinine 0.7 L Est GFR ( Amer) > 60 Est GFR (Non-Af Amer) > 60 Random Glucose 86 Calcium 9.3 Total Bilirubin 0.4 AST 28 ALT 36 Alkaline Phosphatase 58 C-Reactive Protein Total Protein 7.0 Albumin 4.0 Globulin 2.9 Albumin/Globulin Ratio 1.4 Lipase 51 Urine Color Yellow Urine Clarity Clear Urine pH 7.0 Ur Specific [place] 1.013 Urine Protein Negative Urine Glucose (UA) Normal Urine Ketones Negative Urine Blood Negative Urine Nitrate Negative Urine Bilirubin Negative Urine Urobilinogen Normal Ur Leukocyte Esterase Neg Urine WBC (Auto) < 1 Urine RBC (Auto) < 1 Ur Squamous Epith Cells < 1 Urine Opiates Screen Urine Methadone Screen Ur Barbiturates Screen Ur Phencyclidine Scrn Ur Amphetamines Screen U Benzodiazepines Scrn U Oth Cocaine Metabols U Cannabinoids Screen 07/17/17 07/18/17 07/18/17 22:56 04:00 04:00 WBC 10.7 RBC 4.50 Hgb 12.1 Hct 36.5 MCV 81.1 MCH 27.0 MCHC 33.3 RDW 15.6 H Plt Count 301 MPV 7.9 Neut % (Auto) 85.5 H Lymph % (Auto) 11.0 L Daniels % (Auto) 2.1 Eos % (Auto) 0.6 Baso % (Auto) 0.8 Neut # (Auto) 9.1 H Lymph # (Auto) 1.2 Daniels # (Auto) 0.2 Eos # (Auto) 0.1 Baso # (Auto) 0.1 Sodium 140 Potassium 4.0 Chloride 108 H Carbon Dioxide 26 Anion Gap 9 L BUN 10 Creatinine 0.6 L Est GFR ( Amer) > 60 Est GFR (Non-Af Amer) > 60 Random Glucose 103 Calcium 8.3 L Total Bilirubin 0.3 AST 20 ALT 34 Alkaline Phosphatase 52 C-Reactive Protein Total Protein 5.6 L Albumin 3.1 L D Globulin 2.5 Albumin/Globulin Ratio 1.2 Lipase Urine Color Urine Clarity Urine pH Ur Specific [place] Urine Protein Urine Glucose (UA) Urine Ketones Urine Blood Urine Nitrate Urine Bilirubin Urine Urobilinogen Ur Leukocyte Esterase Urine WBC (Auto) Urine RBC (Auto) Ur Squamous Epith Cells Urine Opiates Screen Negative Urine Methadone Screen Negative Ur Barbiturates Screen Negative Ur Phencyclidine Scrn Negative Ur Amphetamines Screen Negative U Benzodiazepines Scrn Negative U Oth Cocaine Metabols Negative U Cannabinoids Screen Positive H 07/18/17 04:00 WBC RBC Hgb Hct MCV MCH MCHC RDW Plt Count MPV Neut % (Auto) Lymph % (Auto) Daniels % (Auto) Eos % (Auto) Baso % (Auto) Neut # (Auto) Lymph # (Auto) Daniels # (Auto) Eos # (Auto) Baso # (Auto) Sodium Potassium Chloride Carbon Dioxide Anion Gap BUN Creatinine Est GFR ( Amer) Est GFR (Non-Af Amer) Random Glucose Calcium Total Bilirubin AST ALT Alkaline Phosphatase C-Reactive Protein < 5.00 Total Protein Albumin Globulin Albumin/Globulin Ratio Lipase Urine Color Urine Clarity Urine pH Ur Specific [place] Urine Protein Urine Glucose (UA) Urine Ketones Urine Blood Urine Nitrate Urine Bilirubin Urine Urobilinogen Ur Leukocyte Esterase Urine WBC (Auto) Urine RBC (Auto) Ur Squamous Epith Cells Urine Opiates Screen Urine Methadone Screen Ur Barbiturates Screen Ur Phencyclidine Scrn Ur Amphetamines Screen U Benzodiazepines Scrn U Oth Cocaine Metabols U Cannabinoids Screen Assessment & Plan - Date & Time Date: 07/18/17 (I have seen and examined the patient. I agree with the findings and plan of care as documented by Dr. Rojas. Patient with abdominal pain. History of Crohn's disease. Patient noncompliant with Crohn's medication. Consult to GI. Solumedrol. Symptomatic treatment. Monitor for acute changes.) Time: 19:16 Attending/Attestation - Attestation I have personally seen and examined this patient.: Yes I have fully participated in the care of the patient.: Yes I have reviewed all pertinent clinical information: Yes
[2017-07-18 04:05] LABS: BASO # 0.1 K/uL (0.0-0.2); BASO % 0.8 % (0.0-2.0); EOS # 0.1 K/uL (0.0-0.7); EOS % 0.6 % (0.0-4.0); HEMOGLOBIN 12.1 g/dL (12.0-18.0); LYMPH # 1.2 K/uL (1.0-4.3); MEAN CELL VOLUME 81.1 fL (80.0-94.0); MEAN CORPUSCULAR HGB CONC 33.3 g/dL (33.0-37.0); MEAN PLATELET VOLUME 7.9 fL (7.2-11.7); MONO # 0.2 K/uL (0.0-0.8); MONO % 2.1 % (0.0-10.0); NEUT # 9.1 K/uL (1.8-7.0); NEUT % 85.5 % (50.0-75.0); RBC 4.5 Mil/uL (4.40-5.90); RED CELL DISTRIBUTION WIDTH 15.6 % (11.5-14.5); WHITE BLOOD COUNT 10.7 K/uL (4.8-10.8)
[2017-07-18 04:28] LABS: ALB/GLOB RATIO 1.2 (1.0-2.1); ALBUMIN 3.1 g/dL (3.5-5.0); ALT/SGPT 34 U/L (21-72); AST/SGOT 20 U/L (17-59); BLOOD UREA NITROGEN 10 mg/dL (9-20); CALCIUM 8.3 mg/dl (8.6-10.4); GFR AFRICAN-AMERICAN > 60; GFR NON-AFRICAN AMERICAN > 60
[2017-07-18 06:54] VITALS: RESP 20
--- NOTE | 2017-07-18 07:29 | CP.PCM.PN ---
<Veronica Carrillo - Last Filed: 07/18/17 09:51> Subjective - Date & Time of Evaluation Date of Evaluation: 07/18/17 Time of Evaluation: 07:32 - Subjective Subjective: Progress Note Patient seen and examined at bedside. Patient states he has abdominal pain on left lower quadrant. He said he hasn't had diarrhea today, but had a small watery bowel movement yesterday without blood. Patient denies fever, chills, nausea, vomiting, constipation. Objective - Vital Signs/Intake and Output Vital Signs (last 24 hours): Temp Pulse Resp BP Pulse Ox 97.7 F 75 20 93/57 L 100 07/18/17 06:53 07/18/17 06:53 07/18/17 06:53 07/18/17 06:53 07/18/17 06:53 - Medications Medications: Current Medications Enoxaparin Sodium (Lovenox) 40 mg SC DAILY [facility] Ketorolac Tromethamine (Toradol) 30 mg IVP Q6 PRN PRN Reason: Pain, severe (8-10) Ondansetron HCl (Zofran Inj) 4 mg IVP Q6 PRN PRN Reason: Nausea/Vomiting Pantoprazole Sodium (Protonix Inj) 40 mg IVP DAILY [facility] Prednisone (Prednisone Tab) 50 mg PO DAILY [facility] - Labs Labs: 07/18/17 04:00 07/18/17 04:00 - Head Exam Head Exam: ATRAUMATIC, NORMAL INSPECTION, NORMOCEPHALIC - Eye Exam Eye Exam: EOMI, Normal appearance - ENT Exam ENT Exam: Mucous Membranes Moist, Normal Exam - Neck Exam Neck Exam: Full ROM. absent: Tenderness, Thyromegaly - Respiratory Exam Respiratory Exam: Clear to Ausculation Bilateral, NORMAL BREATHING PATTERN. absent: Accessory Muscle Use, Respiratory Distress - Cardiovascular Exam Cardiovascular Exam: Bradycardia, Tachycardia, REGULAR RHYTHM, +S1, +S2 - GI/Abdominal Exam GI & Abdominal Exam: Soft. absent: Distended, Firm, Guarding, Pulsatile Mass, Rebound Additional comments: Patient states tenderness in left lower quadrant. No tenderness appreciated on physical exam. - Extremities Exam Extremities Exam: Full ROM. absent: Pedal Edema - Back Exam Back Exam: Full ROM, NORMAL INSPECTION. absent: paraspinal tenderness - Neurological Exam Neurological Exam: Alert, Awake, CN II-XII Intact, Oriented x3 - Psychiatric Exam Psychiatric exam: Normal Affect, Normal Mood - Skin Skin Exam: Dry, Intact, Normal Color, Warm Assessment and Plan - Assessment and Plan (Free Text) Assessment: This is a 26 yo male with hx of Crohn's disease presents with abdominal pain worsening over 1 day was found to have mural thickening of terminal ileum on CT abdomen/pelvis and is currently being treated for enteritis. 1. Abdominal pain, Enteritis history of Crohn's disease CT abdomen/pelvis: moderate mural thickening of terminal ileum, likely enteritis GI consult: Dr. Valdes CRP <5.00 f/u fecal calprotectin f/u stool studies Prednisone 50mg POQD Toradol 30mg IVP Q6H PRN pain Zofran 4mg IV6H PRN nausea 2. GI/DVT ppx Protonix 40mg IVP QD Lovenox 40mg SC QD discussed with Dr. Katia Carrillo, PGY1 <Sania Montalvo V - Last Filed: 07/18/17 21:35> Objective - Vital Signs/Intake and Output Vital Signs (last 24 hours): Temp Pulse Resp BP Pulse Ox 97.8 F 85 20 112/72 97 07/18/17 08:07 07/18/17 08:07 07/18/17 08:07 07/18/17 08:53 07/18/17 08:07 Intake and Output: 07/18/17 07/19/17 18:59 06:59 Intake Total 600 Balance 600 - Labs Labs: 07/18/17 04:00 07/18/17 04:00 Assessment and Plan (1) Left against medical advice Status: Acute (2) Crohn's disease involving terminal ileum Status: Acute Attending/Attestation - Attestation I have personally seen and examined this patient.: Yes I have fully participated in the care of the patient.: Yes I have reviewed all pertinent clinical information, including history, physical exam and plan: Yes Notes (Text): Patient seen, examined and case discussed with resident. Agree with assessment and plan as written by the resident. Noting patient refusing medications this morning Patient ultimately decided to leave against medical advice following my rounds today as noted in the discharge summary.
[2017-07-18] MEDS ORDERED: Sodium Chloride 0.9% 1,000 ML IV SCH (07:45)
[2017-07-18 08:08] VITALS: PULSE 85; TEMP 97.8; O2SAT 97
[2017-07-18 08:53] VITALS: BP 112/72
[2017-07-18] MEDS ORDERED: Enoxaparin 40 mg Syringe SC SCH (10:00)
--- NOTE | 2017-07-18 15:07 | CP.PCM.DIS ---
<Veronica Carrillo - Last Filed: 07/18/17 15:07> Provider - Provider Date of Admission: 07/18/17 01:20 Attending physician: Jose Elias Hui MD Consults: Dr. Valdes Time Spent in preparation of Discharge (in minutes): 35 Hospital Course - Lab Results Lab Results: Most Recent Lab Values WBC 10.7 K/uL (4.8-10.8) 07/18/17 04:00 RBC 4.50 Mil/uL (4.40-5.90) 07/18/17 04:00 Hgb 12.1 g/dL (12.0-18.0) 07/18/17 04:00 Hct 36.5 % (35.0-51.0) 07/18/17 04:00 MCV 81.1 fL (80.0-94.0) 07/18/17 04:00 MCH 27.0 pg (27.0-31.0) 07/18/17 04:00 MCHC 33.3 g/dL (33.0-37.0) 07/18/17 04:00 RDW 15.6 % (11.5-14.5) H 07/18/17 04:00 Plt Count 301 K/uL (130-400) 07/18/17 04:00 MPV 7.9 fL (7.2-11.7) 07/18/17 04:00 Neut % (Auto) 85.5 % (50.0-75.0) H 07/18/17 04:00 Lymph % (Auto) 11.0 % (20.0-40.0) L 07/18/17 04:00 [place] % (Auto) 2.1 % (0.0-10.0) 07/18/17 04:00 Eos % (Auto) 0.6 % (0.0-4.0) 07/18/17 04:00 Baso % (Auto) 0.8 % (0.0-2.0) 07/18/17 04:00 Neut # (Auto) 9.1 K/uL (1.8-7.0) H 07/18/17 04:00 Lymph # (Auto) 1.2 K/uL (1.0-4.3) 07/18/17 04:00 [place] # (Auto) 0.2 K/uL (0.0-0.8) 07/18/17 04:00 Eos # (Auto) 0.1 K/uL (0.0-0.7) 07/18/17 04:00 Baso # (Auto) 0.1 K/uL (0.0-0.2) 07/18/17 04:00 Sodium 140 mmol/L (132-148) 07/18/17 04:00 Potassium 4.0 mmol/L (3.6-5.2) 07/18/17 04:00 Chloride 108 mmol/L (98-107) H 07/18/17 04:00 Carbon Dioxide 26 mmol/L (22-30) 07/18/17 04:00 Anion Gap 9 (10-20) L 07/18/17 04:00 BUN 10 mg/dL (9-20) 07/18/17 04:00 Creatinine 0.6 mg/dL (0.8-1.5) L 07/18/17 04:00 Est GFR ( Amer) > 60 07/18/17 04:00 Est GFR (Non-Af Amer) > 60 07/18/17 04:00 Random Glucose 103 mg/dL (75-110) 07/18/17 04:00 Calcium 8.3 mg/dl (8.6-10.4) L 07/18/17 04:00 Total Bilirubin 0.3 mg/dL (0.2-1.3) 07/18/17 04:00 AST 20 U/L (17-59) 07/18/17 04:00 ALT 34 U/L (21-72) 07/18/17 04:00 Alkaline Phosphatase 52 U/L (38-126) 07/18/17 04:00 C-Reactive Protein < 5.00 mg/L (0.0-9.9) 07/18/17 04:00 Total Protein 5.6 g/dL (6.3-8.3) L 07/18/17 04:00 Albumin 3.1 g/dL (3.5-5.0) L D 07/18/17 04:00 Globulin 2.5 gm/dL (2.2-3.9) 07/18/17 04:00 Albumin/Globulin Ratio 1.2 (1.0-2.1) 07/18/17 04:00 Lipase 51 U/L (23-300) 07/17/17 21:15 Urine Color Yellow (YELLOW) 07/17/17 22:56 Urine Clarity Clear (Clear) 07/17/17 22:56 Urine pH 7.0 (5.0-8.0) 07/17/17 22:56 Ur Specific [place] 1.013 (1.003-1.030) 07/17/17 22:56 Urine Protein Negative mg/dL (NEGATIVE) 07/17/17 22:56 Urine Glucose (UA) Normal mg/dL (Normal) 07/17/17 22:56 Urine Ketones Negative mg/dL (NEGATIVE) 07/17/17 22:56 Urine Blood Negative (NEGATIVE) 07/17/17 22:56 Urine Nitrate Negative (NEGATIVE) 07/17/17 22:56 Urine Bilirubin Negative (NEGATIVE) 07/17/17 22:56 Urine Urobilinogen Normal mg/dL (0.2-1.0) 07/17/17 22:56 Ur Leukocyte Esterase Neg Boris/uL (Negative) 07/17/17 22:56 Urine WBC (Auto) < 1 /hpf (0-5) 07/17/17 22:56 Urine RBC (Auto) < 1 /hpf (0-3) 07/17/17 22:56 Ur Squamous Epith Cells < 1 /hpf (0-5) 07/17/17 22:56 Urine Opiates Screen Negative (NEGATIVE) 07/17/17 22:56 Urine Methadone Screen Negative (NEGATIVE) 07/17/17 22:56 Ur Barbiturates Screen Negative (NEGATIVE) 07/17/17 22:56 Ur Phencyclidine Scrn Negative (NEGATIVE) 07/17/17 22:56 Ur Amphetamines Screen Negative (NEGATIVE) 07/17/17 22:56 U Benzodiazepines Scrn Negative (NEGATIVE) 07/17/17 22:56 U Oth Cocaine Metabols Negative (NEGATIVE) 07/17/17 22:56 U Cannabinoids Screen Positive (NEGATIVE) H 07/17/17 22:56 - Hospital Course Hospital Course: HPI This is a 26 yo male with past medical hx of Crohn's disease dx in 2013, presenting today with abdominal day x 1 day. Began worsening today. Pt says he has chronic pain for years now and rarely has a pain free day. Describes sensation as burning. Diffusely located across abdomen. Denies scrotal/ testicular pain. Had one episode of diarrhea today. No fevers or chills. Diagnosed with Crohn's in 2013, had colonoscopy. Did not take his prescribed meds and did not follow up with GI or PMD. Does not use pain meds but uses marijuana daily to help cope with sx. Denies any urinary symptoms. Not sexually active. Hospital Course Patient admitted for Crohn's disease flare up and left AMA after being given solumedrol, pain medication. Patient's vitals were stable, abdominal pain minimal, and patient is not vomiting or having diarrhea. - Date & Time of H&P Date of H&P: 07/18/17 Time of H&P: 15:00 Discharge Exam - Head Exam Head Exam: ATRAUMATIC, NORMAL INSPECTION, NORMOCEPHALIC Discharge Plan - Follow Up Plan Condition: FAIR Disposition: AGAINST MEDICAL ADVICE <Sania Montalvo V - Last Filed: 07/18/17 21:33> Provider - Provider Date of Admission: 07/18/17 01:20 Attending physician: Jose Elias Hui MD Diagnosis - Discharge Diagnosis (1) Left against medical advice Status: Acute Comment: Patient left against medical advice. Risks of leaving hospital prematurely discussed with patient by the resident. Patient awaiting GI evaluation and had refused medications during hospitalization. (2) Crohn's disease involving terminal ileum Status: Acute Comment: Patient had diagnosed of Crohns in [place] about 4 years ago. Patient not compliant on prior medication regimen: pentasa and prednisone. Patient reports he has been marijuana off the street for the past four years. Patient today reports he is eager to eat. He denies any diarrhea today. Patient recommended to establish care at the [facility] since recent move from [facility] to [place]. Patient following my rounds, wanted to leave against medical advice. Hospital Course - Lab Results Lab Results: Most Recent Lab Values WBC 10.7 K/uL (4.8-10.8) 07/18/17 04:00 RBC 4.50 Mil/uL (4.40-5.90) 07/18/17 04:00 Hgb 12.1 g/dL (12.0-18.0) 07/18/17 04:00 Hct 36.5 % (35.0-51.0) 07/18/17 04:00 MCV 81.1 fL (80.0-94.0) 07/18/17 04:00 MCH 27.0 pg (27.0-31.0) 07/18/17 04:00 MCHC 33.3 g/dL (33.0-37.0) 07/18/17 04:00 RDW 15.6 % (11.5-14.5) H 07/18/17 04:00 Plt Count 301 K/uL (130-400) 07/18/17 04:00 MPV 7.9 fL (7.2-11.7) 07/18/17 04:00 Neut % (Auto) 85.5 % (50.0-75.0) H 07/18/17 04:00 Lymph % (Auto) 11.0 % (20.0-40.0) L 07/18/17 04:00 [place] % (Auto) 2.1 % (0.0-10.0) 07/18/17 04:00 Eos % (Auto) 0.6 % (0.0-4.0) 07/18/17 04:00 Baso % (Auto) 0.8 % (0.0-2.0) 07/18/17 04:00 Neut # (Auto) 9.1 K/uL (1.8-7.0) H 07/18/17 04:00 Lymph # (Auto) 1.2 K/uL (1.0-4.3) 07/18/17 04:00 [place] # (Auto) 0.2 K/uL (0.0-0.8) 07/18/17 04:00 Eos # (Auto) 0.1 K/uL (0.0-0.7) 07/18/17 04:00 Baso # (Auto) 0.1 K/uL (0.0-0.2) 07/18/17 04:00 Sodium 140 mmol/L (132-148) 07/18/17 04:00 Potassium 4.0 mmol/L (3.6-5.2) 07/18/17 04:00 Chloride 108 mmol/L (98-107) H 07/18/17 04:00 Carbon Dioxide 26 mmol/L (22-30) 07/18/17 04:00 Anion Gap 9 (10-20) L 07/18/17 04:00 BUN 10 mg/dL (9-20) 07/18/17 04:00 Creatinine 0.6 mg/dL (0.8-1.5) L 07/18/17 04:00 Est GFR ( Amer) > 60 07/18/17 04:00 Est GFR (Non-Af Amer) > 60 07/18/17 04:00 Random Glucose 103 mg/dL (75-110) 07/18/17 04:00 Calcium 8.3 mg/dl (8.6-10.4) L 07/18/17 04:00 Total Bilirubin 0.3 mg/dL (0.2-1.3) 07/18/17 04:00 AST 20 U/L (17-59) 07/18/17 04:00 ALT 34 U/L (21-72) 07/18/17 04:00 Alkaline Phosphatase 52 U/L (38-126) 07/18/17 04:00 C-Reactive Protein < 5.00 mg/L (0.0-9.9) 07/18/17 04:00 Total Protein 5.6 g/dL (6.3-8.3) L 07/18/17 04:00 Albumin 3.1 g/dL (3.5-5.0) L D 07/18/17 04:00 Globulin 2.5 gm/dL (2.2-3.9) 07/18/17 04:00 Albumin/Globulin Ratio 1.2 (1.0-2.1) 07/18/17 04:00 Lipase 51 U/L (23-300) 07/17/17 21:15 Urine Color Yellow (YELLOW) 07/17/17 22:56 Urine Clarity Clear (Clear) 07/17/17 22:56 Urine pH 7.0 (5.0-8.0) 07/17/17 22:56 Ur Specific [place] 1.013 (1.003-1.030) 07/17/17 22:56 Urine Protein Negative mg/dL (NEGATIVE) 07/17/17 22:56 Urine Glucose (UA) Normal mg/dL (Normal) 07/17/17 22:56 Urine Ketones Negative mg/dL (NEGATIVE) 07/17/17 22:56 Urine Blood Negative (NEGATIVE) 07/17/17 22:56 Urine Nitrate Negative (NEGATIVE) 07/17/17 22:56 Urine Bilirubin Negative (NEGATIVE) 07/17/17 22:56 Urine Urobilinogen Normal mg/dL (0.2-1.0) 07/17/17 22:56 Ur Leukocyte Esterase Neg [place]/uL (Negative) 07/17/17 22:56 Urine WBC (Auto) < 1 /hpf (0-5) 07/17/17 22:56 Urine RBC (Auto) < 1 /hpf (0-3) 07/17/17 22:56 Ur Squamous Epith Cells < 1 /hpf (0-5) 07/17/17 22:56 Urine Opiates Screen Negative (NEGATIVE) 07/17/17 22:56 Urine Methadone Screen Negative (NEGATIVE) 07/17/17 22:56 Ur Barbiturates Screen Negative (NEGATIVE) 07/17/17 22:56 Ur Phencyclidine Scrn Negative (NEGATIVE) 07/17/17 22:56 Ur Amphetamines Screen Negative (NEGATIVE) 07/17/17 22:56 U Benzodiazepines Scrn Negative (NEGATIVE) 07/17/17 22:56 U Oth Cocaine Metabols Negative (NEGATIVE) 07/17/17 22:56 U Cannabinoids Screen Positive (NEGATIVE) H 07/17/17 22:56 Discharge Exam - Eye Exam Eye Exam: EOMI, Normal appearance - ENT Exam ENT Exam: Mucous Membranes Moist - Respiratory Exam Respiratory Exam: NORMAL BREATHING PATTERN. absent: Rales, Rhonchi - Cardiovascular Exam Cardiovascular Exam: REGULAR RHYTHM, RRR, +S1, +S2 - GI/Abdominal Exam GI & Abdominal Exam: Normal Bowel Sounds, Soft. absent: Distended, Firm, Guarding, Rebound, Rigid, Tenderness - Extremities Exam Extremities exam: pedal pulses present - Neurological Exam Neurological exam: Alert, CN II-XII Intact, Oriented x3 - Psychiatric Exam Psychiatric exam: Normal Affect, Normal Mood - Skin Skin Exam: Dry, Intact, Normal Color, Warm Attending/Attestation - Attestation I have personally seen and examined this patient.: Yes I have fully participated in the care of the patient.: Yes I have reviewed all pertinent clinical information, including history, physical exam and plan: Yes Notes (Text): Patient seen, examined, and case discussed with medical sales consultant. Patient during rounds today, reports pain is 5/10 abdomen but appears very comfortable, and had been sleeping well prior to my arrival. Patient had refused prednsione this morning. Patient denies further episodes of nausea/ vomitting, nor diarrhea changes. Patient very eager to eat. Patient changed to liquid diet. Patient pending GI evaluation. Following my rounds, patient wanted to leave against medical advice. Resident discussed risks of leaving against medical advice. patient is AAOX3, NAD. Patient left against medical advice.
== END 2017-07-18 14:52 | disposition left against medical advice (07) | DRG 386 ==
LOC: C.ER 19:47 → C.9E 07-18 01:20 → C.5S 07-18 06:15
PROVIDERS: ADMIT Family Medicine; ATTEND Family Medicine
DX: K50.00 Crohn's disease of small intestine without complications (principal); Z68.1 Body mass index [BMI] 19.9 or less, adult; G89.29 Other chronic pain; F12.90 Cannabis use, unspecified, uncomplicated; F17.210 Nicotine dependence, cigarettes, uncomplicated

== ENCOUNTER 2018-01-02 08:37 | Inpatient (IN) | payer MEDICAID ==
[2018-01-02] MEDS ORDERED: Sodium Chloride 0.9% 1,000 ML IV STA (09:38)
[2018-01-02] MEDS ORDERED: Iohexol 240 (50 ml) PO STA (09:38)
[2018-01-02] MEDS ORDERED: Sodium Chloride 0.9% 1,000 ML ONE (09:58)
[2018-01-02] MEDS ORDERED: Iohexol 240 (50 ml) ONE (09:59)
[2018-01-02 10:03] LABS: URINE BACTERIA OCC (<OCC); URINE BILIRUBIN NEGATIVE (NEGATIVE); URINE BLOOD NEGATIVE (NEGATIVE); URINE CLARITY Hazy (Clear); URINE COLOR Yellow (YELLOW); URINE GLUCOSE (UA) NORMAL (Normal); URINE HYALINE CAST 0-2 /lpf (0-2); URINE LEUKOCYTE ESTERASE NEG Leu/uL (Negative); URINE PROTEIN NEGATIVE (NEGATIVE)
[2018-01-02 10:23] LABS: BASO % 0.4 % (0.0-2.0); EOS # 0.1 K/uL (0.0-0.7); EOS % 0.6 % (0.0-4.0); HEMOGLOBIN 13.1 g/dL (12.0-18.0); LYMPH # 1.2 K/uL (1.0-4.3); LYMPH % 12.7 % (20.0-40.0); MEAN CELL VOLUME 81.9 fL (80.0-94.0); MEAN CORPUSCULAR HEMOGLOBIN 26.9 pg (27.0-31.0); MEAN CORPUSCULAR HGB CONC 32.8 g/dL (33.0-37.0); MEAN PLATELET VOLUME 8.2 fL (7.2-11.7); MONO # 0.4 K/uL (0.0-0.8); MONO % 4.7 % (0.0-10.0); NEUT # 7.5 K/uL (1.8-7.0); NEUT % 81.6 % (50.0-75.0); NRBC % 0.1 % (0.0-2.0); RBC 4.86 Mil/uL (4.40-5.90); RED CELL DISTRIBUTION WIDTH 15.2 % (11.5-14.5); WHITE BLOOD COUNT 9.1 K/uL (4.8-10.8)
[2018-01-02 10:35] LABS: ALB/GLOB RATIO 1.4 (1.0-2.1); ALBUMIN 3.7 g/dL (3.5-5.0); ALT/SGPT 21 U/L (21-72); AST/SGOT 19 U/L (17-59); BLOOD UREA NITROGEN 16 mg/dL (9-20); CALCIUM 8.8 mg/dl (8.6-10.4); GFR NON-AFRICAN AMERICAN > 60; LIPASE 34 U/L (23-300)
[2018-01-02 10:40] LABS: BARBITURATES, UR NEGATIVE (NEGATIVE); BENZODIAZEPINES, UR NEGATIVE (NEGATIVE); OPIATES, UR NEGATIVE (NEGATIVE); PHENCYCLIDINE, UR NEGATIVE (NEGATIVE)
--- NOTE | 2018-01-02 11:51 | C.PDOC ---
History Of Present Illness 27-year-old male, PMHx includes Chrohn's disease, presents to the emergency department with complaints of diarrhea. Patient states he was diagnosed with Crohn's disease in 2013 in [facility] and given medications until the beginning of , but then he lost his insurance and has not followed up since. Patient comes in today because he has been experiencing diarrhea everyday for the past several days, but over the past two days, pain has worsened associated with vomiting. States he has lost more than 40lbs in the past few months. He denies fever, chest pain, symptoms. Chief Complaint (Nursing): Abdominal Pain History Per: Patient History/Exam Limitations: no limitations Current Symptoms Are (Timing): Still Present Past Medical History Reviewed: Historical Data, Nursing Documentation, Vital Signs Vital Signs: Last Vital Signs Temp 97.8 F 01/02/18 08:43 Pulse 73 01/02/18 08:43 Resp 18 01/02/18 08:43 BP 108/70 01/02/18 08:43 Pulse Ox 99 01/02/18 08:43 - Medical History PMH: Crohn's Disease Denies: Diabetes, Hepatitis, HIV, HTN, Seizures, Sexually Transmitted Disease Family History: States: No Known Family Hx - Social History Hx Alcohol Use: No Hx Substance Use: Yes - Immunization History Hx Tetanus Toxoid Vaccination: No Hx Influenza Vaccination: No Hx Pneumococcal Vaccination: No Review Of Systems Constitutional: Positive for: Weight loss. Negative for: Fever Cardiovascular: Negative for: Chest Pain Gastrointestinal: Positive for: Nausea, Vomiting, Abdominal Pain, Diarrhea. Negative for: Hematochezia, Hematemesis Musculoskeletal: Negative for: Back Pain Physical Exam - Physical Exam Appears: Non-toxic, No Acute Distress Skin: Warm, Dry, No Rash Head: Atraumatic Eye(s): bilateral: Normal Inspection Nose: Normal Oral Mucosa: Moist Lips: Normal Appearing Neck: Normal ROM Chest: Symmetrical Cardiovascular: Rhythm Regular, No Murmur Respiratory: Normal Breath Sounds, No Accessory Muscle Use Gastrointestinal/Abdominal: Soft, Tenderness (diffuse, L>R), No Guarding, No Rebound Extremity: Normal ROM, No Deformity Neurological/Psych: Oriented x3, Normal Speech ED Course And Treatment - Laboratory Results Result Diagrams: 01/02/18 10:20 01/02/18 10:20 O2 Sat by Pulse Oximetry: 99 Pulse Ox Interpretation: Normal (RA) - CT Scan/US CT ABD/PEL Other Rad Studies (CT/US): Read By Radiologist, Radiology Report Reviewed CT/US Interpretation: Accession No. : [id number]. Patient Name / ID : SHANNA JACKSON / [id number]. Exam Date : 01/02/2018 12:13:57 ( Approved ). Study Comment : Sex / Age : M / 27Y. Creator : Iris Rangel. Dictator : Olamide Flannery MD. Meat Process Worker : Warehousing Technician : Olamide Flannery MD. Approver2 : Report Date : 01/02/2018 12:34:35. My Comment : . PROCEDURE: CT Abdomen and Pelvis with oral and IV contrast. HISTORY: abd pain, vomiting, diarrhea, weight loss. COMPARISON: CT abdomen and pelvis with IV contrast performed 07/17/17. TECHNIQUE: Contiguous axial images of the abdomen and pelvis. Oral and IV contrast was administered. Coronal and Sagittal reformats generated and reviewed. Contrast dose: 100 mL Visipaque IV. Radiatio n dose: Total exam DLP = 218.24 mGy-cm. This CT exam was performed using one or more of the following dose reduction techniques: Automated exposure control, adjustment of the mA and/or kV according to patient size, and/or use of iterative reconstruction technique. FINDINGS: Evaluation limited by paucity of intra-abdominal/intrapelvic fat. LOWER THORAX: No visible consolidation, pleural effusion, or pneumothorax. LIVER: Heterogeneous hepatic parenchyma. Overall hypoattenuation of the liver may be seen in the setting of hepatic steatosis. GALLBLADDER AND BILE DUCTS: Unremarkable. PANCREAS: Unremarkable. SPLEEN: Unremarkable. ADRENALS: Unremarkable. KIDNEYS AND URETERS: The ki dneys enhance symmetrically. No hydronephrosis or obstructing renal calculus. BLADDER: Under distention of the urinary bladder appears otherwise unremarkable. REPRODUCTIVE: Unremarkable. APPENDIX: The appendix appears within normal limits of caliber. No secondary signs of acute appendicitis. BOWEL: The stomach is nondistended. The bowel loops appear within normal limits of caliber without evidence of intestinal obstruction. Abnormal marked thickened wall of the terminal ileum. PERITONEUM: No significant free fluid. No definite free air. LYMPH NODES: No bulky lymphadenopathy identified. VASCULATURE: No aortic aneurysm. BONES: No acute osseous abnormality is detected. OTHER FINDINGS: None. IMPRESSION: Abnormal appearance with marked thickened wall of the terminal ileum. Appearance concerning for inflammatory bowel disease versus infectious etiologies. Correlate clinically. Small pelvic free fluid. Heterogeneous hepatic parenchyma. Overall hypoattenuation of the liver may be seen in the setting of hepatic steatosis. Progress Note: Case was d/w Que who accepted patient on his service, requested for consult. Medical Decision Making Medical Decision Making: Prior visits notes and records from previous visits were reviewed. Patient seen and admitted in [place] twice for depression and SI. Plan: * CT Head * Bloodwork * Protonix, IVFs, Zofran * UA * Reassess and Disposition Disposition - Disposition Disposition: HOSPITALIZED Disposition Time: 14:47 Condition: FAIR - Clinical Impression Clinical Impression: Exacerbation of Crohn's disease - Scribe Statement The provider has reviewed the documentation as recorded by the Scribe (Josh Hillman) All medical record entries made by the Scribe were at my direction and personally dictated by me. I have reviewed the chart and agree that the record accurately reflects my personal performance of the history, physical exam, medical decision making, and the department course for this patient. I have also personally directed, reviewed, and agree with the discharge instructions and disposition.
[2018-01-02] MEDS ORDERED: Iodixanol 320 MG/ML 100 ML BOTTLE IV ONE (11:54)
--- NOTE | 2018-01-02 13:11 | CT ---
PROCEDURE: CT Abdomen and Pelvis with oral and IV contrast. HISTORY: abd pain, vomiting, diarrhea, weight loss COMPARISON: CT abdomen and pelvis with IV contrast performed 07/17/17 TECHNIQUE: Contiguous axial images of the abdomen and pelvis. Oral and IV contrast was administered. Coronal and Sagittal reformats generated and reviewed. Contrast dose: 100 mL Visipaque IV Radiation dose: Total exam DLP = 218.24 mGy-cm. This CT exam was performed using one or more of the following dose reduction techniques: Automated exposure control, adjustment of the mA and/or kV according to patient size, and/or use of iterative reconstruction technique. FINDINGS: Evaluation limited by paucity of intra-abdominal/intrapelvic fat. LOWER THORAX: No visible consolidation, pleural effusion, or pneumothorax. LIVER: Heterogeneous hepatic parenchyma. Overall hypoattenuation of the liver may be seen in the setting of hepatic steatosis. GALLBLADDER AND BILE DUCTS: Unremarkable. PANCREAS: Unremarkable. SPLEEN: Unremarkable. ADRENALS: Unremarkable. KIDNEYS AND URETERS: The kidneys enhance symmetrically. No hydronephrosis or obstructing renal calculus. BLADDER: Under distention of the urinary bladder appears otherwise unremarkable. REPRODUCTIVE: Unremarkable. APPENDIX: The appendix appears within normal limits of caliber. No secondary signs of acute appendicitis. BOWEL: The stomach is nondistended. The bowel loops appear within normal limits of caliber without evidence of intestinal obstruction. Abnormal marked thickened wall of the terminal ileum. PERITONEUM: No significant free fluid. No definite free air. LYMPH NODES: No bulky lymphadenopathy identified. VASCULATURE: No aortic aneurysm. BONES: No acute osseous abnormality is detected. OTHER FINDINGS: None. IMPRESSION: Abnormal appearance with marked thickened wall of the terminal ileum. Appearance concerning for inflammatory bowel disease versus infectious etiologies. Correlate clinically. Small pelvic free fluid. Heterogeneous hepatic parenchyma. Overall hypoattenuation of the liver may be seen in the setting of hepatic steatosis.
--- NOTE | 2018-01-02 14:46 | CP.PCM.HP ---
History of Present Illness - History of Present Illness History of Present Illness: 27-year-old male, PMHx includes Chrohn's disease, presents to the emergency department with complaints of diarrhea. Patient states he was diagnosed with Crohn's disease in 2013 in [facility] and given medications until the beginning of 2014, but then he lost his insurance and has not followed up since. Patient comes in today because he has been experiencing diarrhea everyday for the past several days, but over the past two days, pain has worsened associated with vomiting. States he has lost more than 40lbs in the past few months. He denies fever, chest pain, symptoms Present on Admission - Present on Admission Any Indicators Present on Admission: No Review of Systems - Review of Systems All systems: reviewed and no additional remarkable complaints except Review of Systems: abdominal pain nausea or vomiting and vomiting associated with diarrhea Past Patient History - Infectious Disease Hx of Infectious Diseases: None - Past Medical History & Family History Past Medical History?: Yes - Past Social History Smoking Status: Light Smoker < 10 Cigarettes Daily - CARDIAC Hx Hypertension: No - PULMONARY Hx Tuberculosis: No - NEUROLOGICAL Hx Seizures: No - HEMATOLOGICAL/ONCOLOGICAL Hx Human Immunodeficiency Virus (HIV): No - MUSCULOSKELETAL/RHEUMATOLOGICAL Hx Falls: No - GASTROINTESTINAL Hx Crohn's Disease: Yes - GENITOURINARY/GYNECOLOGICAL Hx Sexually Transmitted Disorders: No - PSYCHIATRIC Hx Substance Use: Yes - SURGICAL HISTORY Hx Surgeries: No - ANESTHESIA Hx Anesthesia: No Meds Allergies/Adverse Reactions: Allergies Allergy/AdvReac Type Severity Reaction Status Date / Time No Known Allergies Allergy Verified 10/02/17 22:54 Physical Exam - Head Exam Head Exam: ATRAUMATIC, NORMAL INSPECTION, NORMOCEPHALIC - Eye Exam Eye Exam: EOMI, Normal appearance, PERRL - ENT Exam ENT Exam: Mucous Membranes Moist, Normal Exam - Neck Exam Neck exam: Positive for: Normal Inspection - Respiratory Exam Respiratory Exam: Clear to Auscultation Bilateral, NORMAL BREATHING PATTERN - Cardiovascular Exam Cardiovascular Exam: REGULAR RHYTHM - GI/Abdominal Exam GI & Abdominal Exam: Soft, Tenderness - Rectal Exam Rectal Exam: Deferred - Back Exam Back exam: NORMAL INSPECTION - Neurological Exam Neurological exam: Alert, CN II-XII Intact, Normal Gait, Oriented x3, Reflexes Normal Results - Vital Signs Recent Vital Signs: Last Vital Signs Temp 97.8 F 01/02/18 08:43 Pulse 73 11/06/18 08:43 Resp 18 01/02/18 08:43 BP 108/70 01/02/18 08:43 Pulse Ox 99 01/02/18 13:53 - Labs Result Diagrams: 01/03/18 10:57 01/03/18 10:57 Labs: Laboratory Results - last 24 hr 01/02/18 01/02/18 01/02/18 09:50 09:50 10:20 WBC 9.1 RBC 4.86 Hgb 13.1 Hct 39.8 MCV 81.9 MCH 26.9 L MCHC 32.8 L RDW 15.2 H Plt Count 357 MPV 8.2 Neut % (Auto) 81.6 H Lymph % (Auto) 12.7 L [place] % (Auto) 4.7 Eos % (Auto) 0.6 Baso % (Auto) 0.4 Neut # (Auto) 7.5 H Lymph # (Auto) 1.2 [place] # (Auto) 0.4 Eos # (Auto) 0.1 Baso # (Auto) 0.0 Sodium Potassium Chloride Carbon Dioxide Anion Gap BUN Creatinine Est GFR ( Amer) Est GFR (Non-Af Amer) Random Glucose Calcium Total Bilirubin AST ALT Alkaline Phosphatase Total Protein Albumin Globulin Albumin/Globulin Ratio Lipase Urine Color Yellow Urine Clarity Hazy Urine pH 5.0 Ur Specific [place] 1.025 Urine Protein Negative Urine Glucose (UA) Normal Urine Ketones Negative Urine Blood Negative Urine Nitrate Negative Urine Bilirubin Negative Urine Urobilinogen 2.0 Ur Leukocyte Esterase Neg Urine WBC (Auto) 1 Urine RBC (Auto) 2 Urine Bacteria Occ H Hyaline Casts 0-2 Urine Opiates Screen Negative Urine Methadone Screen Negative Ur Barbiturates Screen Negative Ur Phencyclidine Scrn Negative Ur Amphetamines Screen Negative U Benzodiazepines Scrn Negative U Oth Cocaine Metabols Negative U Cannabinoids Screen Positive H 01/02/18 10:20 WBC RBC Hgb Hct MCV MCH MCHC RDW Plt Count MPV Neut % (Auto) Lymph % (Auto) [place] % (Auto) Eos % (Auto) Baso % (Auto) Neut # (Auto) Lymph # (Auto) [place] # (Auto) Eos # (Auto) Baso # (Auto) Sodium 140 Potassium 4.4 Chloride 105 Carbon Dioxide 26 Anion Gap 13 BUN 16 Creatinine 0.7 L Est GFR ( Amer) > 60 Est GFR (Non-Af Amer) > 60 Random Glucose 85 Calcium 8.8 Total Bilirubin 0.5 AST 19 ALT 21 D Alkaline Phosphatase 48 Total Protein 6.3 Albumin 3.7 Globulin 2.6 Albumin/Globulin Ratio 1.4 Lipase 34 Urine Color Urine Clarity Urine pH Ur Specific [place] Urine Protein Urine Glucose (UA) Urine Ketones Urine Blood Urine Nitrate Urine Bilirubin Urine Urobilinogen Ur Leukocyte Esterase Urine WBC (Auto) Urine RBC (Auto) Urine Bacteria Hyaline Casts Urine Opiates Screen Urine Methadone Screen Ur Barbiturates Screen Ur Phencyclidine Scrn Ur Amphetamines Screen U Benzodiazepines Scrn U Oth Cocaine Metabols U Cannabinoids Screen Assessment & Plan (1) Exacerbation of Crohn's disease Status: Acute (2) Abdominal pain Status: Acute
[2018-01-02 15:02] VITALS: RESP 20
[2018-01-02] MEDS ORDERED: Lactated Ringer's 1,000 ML IV STA (15:05)
[2018-01-02] MEDS ORDERED: Lactated Ringer's 1,000 ML ONE (15:13)
--- NOTE | 2018-01-02 15:52 | CP.PCM.CON ---
History of Present Illness - History of Present Illness History of Present Illness: Asked by Dr. Peñaloza for a GI consultation on this patient. 27 year old male with medical history of crohn's disease diagnosed 4 years ago who presents to hospital with complaint of abdominal pain, nausea, and vomiting which started ye sterday. Since initial diagnosis in [place], he has not been on any medication for his disease. He endorses chronic abdominal pain which is relieved by smoking marijuana but yesterday the pain became so severe and he started vomiting which prompted him to come to hospital. He describes a 8/10 intensity epigastric pain but denies fever/chills. He reports intermittent blood on toilet tissue when wiping along with a weight loss of nearly 30 pounds over the past 2 years. He is currently seen resting in bed, appears comfortable and asking for diet to be advanced. He had a colonoscopy 4 years ago during time of diagnosis, no follow up since. Social history: smokes marijuana, social ETOH use Family history: reviewed, patient denies history of GI malignancies Review of Systems - Review of Systems Review of Systems: - 12 point review of systems performed, negative aside from mentioned above - Constitutional Constitutional: Weight Loss - Cardiovascular Cardiovascular: absent: Acrocyanosis, Chest Pain, Chest Pain at Rest, Chest Pain with Activity, Claudication, Diaphoresis, Dyspnea, Dyspnea on Exertion, Edema, Irregular Heart Rhythm, Pain Radiating to Arm/Neck/Jaw, Leg Edema, Leg Ulcers, Lightheadedness, Orthopnea, Palpitations, Paroxysmal Nocturnal Dyspnea, Pedal Edema, Radiating Pain, Rapid Heart Rate, Slow Heart Rate, Syncope, Other - Respiratory Respiratory: absent: Cough, Dyspnea, Hemoptysis, Dyspnea on Exertion, Wheezing, Snoring, Stridor, Pain on Inspiration, Chest Congestion, Excessive Mucous Production, Change in Mucous Color, Pain with Coughing, Other - Gastrointestinal Gastrointestinal: Abdominal Pain, Nausea, Vomiting - Musculoskeletal Musculoskeletal: absent: Abnormal Gait, Arthralgias, Atrophy, Back Pain, Deformity, Joint Swelling, Limited Range of Motion, Loss of Height, Muscle Cramps, Muscle Weakness, Myalgias, Neck Pain, Numbness, Radiating Pain into Limb, Stiffness, Tingling, Other - Neurological Neurological: absent: Abnormal Gait, Abnormal Hearing, Abnormal Movements, Abnormal Speech, Behavioral Changes, Burning Sensations, Confusion, Convulsions, Disequilibrium, Dizziness, Numbness, Focal Weakness, Frequent Falls, Headaches, Lack of Coordination, Loss of Vision, Memory Loss, Paresthesias, Radicular Pain, Restless Legs, Sensory Deficit, Syncope, Tingling, Tremor, Vertigo, Weakness, Other Visual Disturbances, Other Past Patient History - Infectious Disease Hx of Infectious Diseases: None - Past Medical History & Family History Past Medical History?: Yes - Past Social History Smoking Status: Light Smoker < 10 Cigarettes Daily - CARDIAC Hx Hypertension: No - PULMONARY Hx Tuberculosis: No - NEUROLOGICAL Hx Seizures: No - HEMATOLOGICAL/ONCOLOGICAL Hx Human Immunodeficiency Virus (HIV): No - MUSCULOSKELETAL/RHEUMATOLOGICAL Hx Falls: No - GASTROINTESTINAL Hx Crohn's Disease: Yes - GENITOURINARY/GYNECOLOGICAL Hx Sexually Transmitted Disorders: No - PSYCHIATRIC Hx Substance Use: Yes - SURGICAL HISTORY Hx Surgeries: No - ANESTHESIA Hx Anesthesia: No Meds Allergies/Adverse Reactions: Allergies Allergy/AdvReac Type Severity Reaction Status Date / Time No Known Allergies Allergy Verified 10/02/17 22:54 - Medications Medications: Current Medications Lactated Ringer's (Lactated Ringer's) 1,000 mls @ 1,000 mls/hr IV .Q1H STA Stop: 01/02/18 16:04 Last Admin: 01/02/18 15:16 Dose: 1,000 mls/hr Physical Exam - Constitutional Appears: Non-toxic, No Acute Distress - Head Exam Head Exam: NORMAL INSPECTION - Eye Exam Eye Exam: EOMI, Normal appearance - ENT Exam ENT Exam: Mucous Membranes Moist - Respiratory Exam Respiratory Exam: Clear to Auscultation Bilateral - Cardiovascular Exam Cardiovascular Exam: +S1, +S2 - GI/Abdominal Exam GI & Abdominal Exam: Normal Bowel Sounds, Soft, Tenderness Additional comments: mild epigastric tenderness to palpation, no rebound/guarding no palpable hepato/splenomegaly - Extremities Exam Extremities exam: Positive for: normal inspection - Neurological Exam Neurological exam: Alert, CN II-XII Intact, Oriented x3, Reflexes Normal - Psychiatric Exam Psychiatric exam: Normal Affect, Normal Mood - Skin Skin Exam: Dry, Intact, Normal Color, Warm Results - Vital Signs Recent Vital Signs: Last Vital Signs Temp 97.8 F 01/02/18 08:43 Pulse 62 01/02/18 15:02 Resp 20 01/02/18 15:16 BP 94/52 L 01/02/18 15:16 Pulse Ox 97 01/02/18 15:16 - Labs Result Diagrams: 01/02/18 10:20 01/02/18 10:20 Labs: Laboratory Results - last 24 hr 01/02/18 01/02/18 01/02/18 09:50 09:50 10:20 WBC 9.1 RBC 4.86 Hgb 13.1 Hct 39.8 MCV 81.9 MCH 26.9 L MCHC 32.8 L RDW 15.2 H Plt Count 357 MPV 8.2 Neut % (Auto) 81.6 H Lymph % (Auto) 12.7 L Wilson % (Auto) 4.7 Eos % (Auto) 0.6 Baso % (Auto) 0.4 Neut # (Auto) 7.5 H Lymph # (Auto) 1.2 Wilson # (Auto) 0.4 Eos # (Auto) 0.1 Baso # (Auto) 0.0 Sodium Potassium Chloride Carbon Dioxide Anion Gap BUN Creatinine Est GFR ( Amer) Est GFR (Non-Af Amer) Random Glucose Calcium Total Bilirubin AST ALT Alkaline Phosphatase Total Protein Albumin Globulin Albumin/Globulin Ratio Lipase Urine Color Yellow Urine Clarity Hazy Urine pH 5.0 Ur Specific [place] 1.025 Urine Protein Negative Urine Glucose (UA) Normal Urine Ketones Negative Urine Blood Negative Urine Nitrate Negative Urine Bilirubin Negative Urine Urobilinogen 2.0 Ur Leukocyte Esterase Neg Urine WBC (Auto) 1 Urine RBC (Auto) 2 Urine Bacteria Occ H Hyaline Casts 0-2 Urine Opiates Screen Negative Urine Methadone Screen Negative Ur Barbiturates Screen Negative Ur Phencyclidine Scrn Negative Ur Amphetamines Screen Negative U Benzodiazepines Scrn Negative U Oth Cocaine Metabols Negative U Cannabinoids Screen Positive H 01/02/18 10:20 WBC RBC Hgb Hct MCV MCH MCHC RDW Plt Count MPV Neut % (Auto) Lymph % (Auto) Wilson % (Auto) Eos % (Auto) Baso % (Auto) Neut # (Auto) Lymph # (Auto) Wilson # (Auto) Eos # (Auto) Baso # (Auto) Sodium 140 Potassium 4.4 Chloride 105 Carbon Dioxide 26 Anion Gap 13 BUN 16 Creatinine 0.7 L Est GFR ( Amer) > 60 Est GFR (Non-Af Amer) > 60 Random Glucose 85 Calcium 8.8 Total Bilirubin 0.5 AST 19 ALT 21 D Alkaline Phosphatase 48 Total Protein 6.3 Albumin 3.7 Globulin 2.6 Albumin/Globulin Ratio 1.4 Lipase 34 Urine Color Urine Clarity Urine pH Ur Specific [place] Urine Protein Urine Glucose (UA) Urine Ketones Urine Blood Urine Nitrate Urine Bilirubin Urine Urobilinogen Ur Leukocyte Esterase Urine WBC (Auto) Urine RBC (Auto) Urine Bacteria Hyaline Casts Urine Opiates Screen Urine Methadone Screen Ur Barbiturates Screen Ur Phencyclidine Scrn Ur Amphetamines Screen U Benzodiazepines Scrn U Oth Cocaine Metabols U Cannabinoids Screen Assessment & Plan - Assessment and Plan (Free Text) Assessment: Abdominal pain History of crohn's disease CT imaging reviewed by me showing ileal mural wall thickening, no evidence of obstructive pathology Plan: - Full liquid diet as tolerated - Would initiate steroid therapy given clinical scenario suggestive of inflammatory bowel disease exacerbation - Smoking cessation counseling - Obtain viral hepatitis and quantiferon gold in event step up therapy is warranted - Patient would benefit from endoscopic evaluation to assess disease severity and extent, this should be scheduled electively as outpatient following resolution of acute inflammatory process - Will continue to monitor patient clinical course
[2018-01-02 18:31] LABS: HEPATITIS B SURFACE AG Negative (NEGATIVE)
[2018-01-02 18:37] LABS: HEPATITIS A IGM NEGATIVE (NEGATIVE); HEPATITIS B CORE AB NEGATIVE (NEGATIVE)
[2018-01-02 18:49] LABS: HEPATITIS C ANTIBODY NEGATIVE (NEGATIVE)
--- NOTE | 2018-01-03 07:30 | CP.PCM.PN ---
<Rito Smith - Last Filed: 01/03/18 09:17> Subjective - Date & Time of Evaluation Date of Evaluation: 01/03/18 Time of Evaluation: 07:27 - Subjective Subjective: GI Fellow PGY4, progress note. Patient was able to tolerate CLD. He is having mild abdominal pains at this time. Denies diarrhea last night. BP is slightly low, but denies dizziness, lightheadedness, fevers, chills. 5pt ROS completed and neg except for above. Objective - Vital Signs/Intake and Output Vital Signs (last 24 hours): Temp Pulse Resp BP Pulse Ox 97.3 F L 57 L 20 88/50 L 97 01/03/18 00:38 01/03/18 00:38 01/03/18 00:38 01/03/18 00:38 01/03/18 00:38 Intake and Output: 01/03/18 01/03/18 06:59 18:59 Intake Total 300 Output Total 2 Balance 298 - Medications Medications: Current Medications Influenza Virus Vaccine (Fluzone Quad [id number]) 60 mcg IM .ONCE ONE Stop: 01/04/18 10:01 Morphine Sulfate (Morphine) 2 mg IVP Q6 PRN PRN Reason: Pain, severe (8-10) Last Admin: 01/03/18 02:00 Dose: 2 mg Pneumococcal Polyvalent Vaccine (Pneumovax 23 Vaccine) 0.5 ml IM .ONCE ONE Stop: 01/05/18 10:01 Prednisone (Prednisone Tab) 40 mg PO DAILY [facility] Last Admin: 01/02/18 16:41 Dose: 40 mg - Labs Labs: 01/02/18 10:20 01/02/18 10:20 - Constitutional Appears: Non-toxic, No Acute Distress, Chronically Ill - Head Exam Head Exam: NORMAL INSPECTION, NORMOCEPHALIC - Eye Exam Eye Exam: EOMI, Normal appearance - ENT Exam ENT Exam: Mucous Membranes Moist, Normal Exam - Respiratory Exam Respiratory Exam: Clear to Ausculation Bilateral, NORMAL BREATHING PATTERN - Cardiovascular Exam Cardiovascular Exam: REGULAR RHYTHM, +S1, +S2 - GI/Abdominal Exam GI & Abdominal Exam: Soft, Tenderness, Normal Bowel Sounds - Extremities Exam Extremities Exam: Full ROM, Normal Inspection - Neurological Exam Neurological Exam: Alert, Awake, Oriented x3 - Psychiatric Exam Psychiatric exam: Normal Affect, Normal Mood - Skin Skin Exam: Dry, Normal Color Assessment and Plan - Assessment and Plan (Free Text) Assessment: Abdominal pain History of crohn's disease Medical non-compliance CT imaging reviewed by me showing ileal mural wall thickening, no evidence of obstructive pathology Plan: - Tolerated full liquid diet. ADAT to low residual. - Continue prednisone 40mg daily for uncontrolled Crohns. This will need to be weaned over several weeks so patient can make appointment with outpatient GI for further follow up. This was reinforced with patient who understood. - Smoking cessation counseling - Quant Gold PENDING. Hepatitis panel normal. - Patient would benefit from endoscopic evaluation to assess disease severity and extent, this should be scheduled electively as outpatient following resolution of acute inflammatory process - Will continue to monitor patient clinical course - If tolerating diet and pain reasonable controlled, he can be discharged from GI perspective. <Jeff Pepe - Last Filed: 01/03/18 09:44> Objective - Vital Signs/Intake and Output Vital Signs (last 24 hours): Temp Pulse Resp BP Pulse Ox 97.9 F 62 20 91/59 L 98 01/03/18 07:43 01/03/18 07:43 01/03/18 07:43 01/03/18 07:43 01/03/18 07:43 Intake and Output: 01/03/18 01/03/18 06:59 18:59 Intake Total 300 Output Total 2 Balance 298 - Medications Medications: Current Medications Influenza Virus Vaccine (Fluzone Quad [id number]) 60 mcg IM .ONCE ONE Stop: 01/04/18 10:01 Morphine Sulfate (Morphine) 2 mg IVP Q6 PRN PRN Reason: Pain, severe (8-10) Last Admin: 01/03/18 02:00 Dose: 2 mg Pneumococcal Polyvalent Vaccine (Pneumovax 23 Vaccine) 0.5 ml IM .ONCE ONE Stop: 01/05/18 10:01 Prednisone (Prednisone Tab) 40 mg PO DAILY [facility] Last Admin: 01/02/18 16:41 Dose: 40 mg - Labs Labs: 01/02/18 10:20 01/02/18 10:20 Attending/Attestation - Attestation I have personally seen and examined this patient.: Yes I have fully participated in the care of the patient.: Yes I have reviewed all pertinent clinical information, including history, physical exam and plan: Yes Notes (Text): 01/03/18 09:40 I have seen and examined patient with GI fellow. No acute events overnight, he is resting in bed comfortably. He experienced post prandial abdominal pain after clear liquids yesterday but denies vomiting, fever/chills. No bowel movements overnight. Crohn's disease Abdominal pain, disease exacerbation - Advance diet to low residue and monitor - Continue with prednisone 40 mg PO for induction therapy - If patient tolerating PO diet, from GI standpoint ok to discharge home with subsequent outpatient follow up. He will require outpatient GI follow up with endoscopic evaluation to assess disease severity/extent to determine further course of therapy. Recommend outpatient prednisone taper regimen by 5 mg per week. - Smoking cessation counseling
[2018-01-03 11:04] LABS: BASO % 0.3 % (0.0-2.0); EOS % 0.1 % (0.0-4.0); HEMOGLOBIN 12.4 g/dL (12.0-18.0); LYMPH # 1.9 K/uL (1.0-4.3); LYMPH % 12.1 % (20.0-40.0); MEAN CELL VOLUME 80.9 fL (80.0-94.0); MEAN CORPUSCULAR HEMOGLOBIN 26.3 pg (27.0-31.0); MEAN CORPUSCULAR HGB CONC 32.5 g/dL (33.0-37.0); MEAN PLATELET VOLUME 8.1 fL (7.2-11.7); MONO # 0.9 K/uL (0.0-0.8); MONO % 5.6 % (0.0-10.0); NEUT % 81.9 % (50.0-75.0); RBC 4.72 Mil/uL (4.40-5.90); RED CELL DISTRIBUTION WIDTH 15.4 % (11.5-14.5)
[2018-01-03 11:06] LABS: WHITE BLOOD COUNT 15.9 K/uL (4.8-10.8)
[2018-01-03 11:21] LABS: ALB/GLOB RATIO 1.4 (1.0-2.1); ALBUMIN 3.3 g/dL (3.5-5.0); ALT/SGPT 23 U/L (21-72); AST/SGOT 22 U/L (17-59); BLOOD UREA NITROGEN 15 mg/dL (9-20); CALCIUM 8.8 mg/dl (8.6-10.4); GFR NON-AFRICAN AMERICAN > 60
--- NOTE | 2018-01-03 13:58 | CP.PCM.PN ---
Subjective - Date & Time of Evaluation Date of Evaluation: 01/03/18 Time of Evaluation: 13:57 - Subjective Subjective: GI evaluation noted patient is cleared for discharge Patient has still abdominal pain We will continue current medications observe for another 24 hours if stable will discharge. Patient will follow with the medical clinic and GI as an outpatient for further evaluation and treatment. Objective - Vital Signs/Intake and Output Vital Signs (last 24 hours): Temp Pulse Resp BP Pulse Ox 97.9 F 62 20 91/59 L 98 01/03/18 07:43 01/03/18 07:43 01/03/18 07:43 01/03/18 07:43 01/03/18 07:43 - Medications Medications: Current Medications Influenza Virus Vaccine (Fluzone Quad [id number]) 60 mcg IM .ONCE ONE Stop: 01/04/18 10:01 Morphine Sulfate (Morphine) 2 mg IVP Q6 PRN PRN Reason: Pain, severe (8-10) Last Admin: 01/03/18 02:00 Dose: 2 mg Pneumococcal Polyvalent Vaccine (Pneumovax 23 Vaccine) 0.5 ml IM .ONCE ONE Stop: 01/05/18 10:01 Prednisone (Prednisone Tab) 40 mg PO DAILY [facility] Last Admin: 01/03/18 10:41 Dose: 40 mg - Labs Labs: 01/03/18 10:57 01/03/18 10:57
[2018-01-03] MEDS: Pantoprazole 20 mg EC Tab PO SCH (17:50)
[2018-01-03 23:38] VITALS: TEMP 97.7
[2018-01-04 07:18] LABS: HEMOGLOBIN 12.7 g/dL (12.0-18.0); WHITE BLOOD COUNT 13.7 K/uL (4.8-10.8)
[2018-01-04 07:31] LABS: ALB/GLOB RATIO 1.4 (1.0-2.1); ALBUMIN 3.4 g/dL (3.5-5.0); ALT/SGPT 26 U/L (21-72); AST/SGOT 22 U/L (17-59); BLOOD UREA NITROGEN 14 mg/dL (9-20); GFR NON-AFRICAN AMERICAN > 60
[2018-01-04 07:33] LABS: BASO % 0.1 % (0.0-2.0); EOS % 0.4 % (0.0-4.0); LYMPH # 1.9 K/uL (1.0-4.3); LYMPH % 13.9 % (20.0-40.0); MEAN CELL VOLUME 80.9 fL (80.0-94.0); MEAN CORPUSCULAR HEMOGLOBIN 26.9 pg (27.0-31.0); MEAN CORPUSCULAR HGB CONC 33.2 g/dL (33.0-37.0); MEAN PLATELET VOLUME 8.4 fL (7.2-11.7); MONO # 0.9 K/uL (0.0-0.8); MONO % 6.7 % (0.0-10.0); NEUT # 10.8 K/uL (1.8-7.0); NEUT % 78.9 % (50.0-75.0); RBC 4.72 Mil/uL (4.40-5.90); RED CELL DISTRIBUTION WIDTH 15.4 % (11.5-14.5)
[2018-01-04 07:44] VITALS: BP 99/64; PULSE 60; O2SAT 99
--- NOTE | 2018-01-04 08:33 | CP.PCM.PN ---
<Rito Smith - Last Filed: 01/04/18 08:30> Subjective - Date & Time of Evaluation Date of Evaluation: 01/04/18 Time of Evaluation: 08:30 - Subjective Subjective: Patient pain is better than yesterday. He was able to tolerate diet yesterday, but complained of some pain the prevented his sleep. He stated the morphine was nt working. Patient did not call insurance company as requested to help make appointment with GI physician in coverage... "I forgot". Patient states he will be going to homeless residential after her leaves hospital as he has nowhere to stay. He denies having any BMs since prior to admission. He denies lightheadedness fevers. 5pt ROS negative except for above Objective - Vital Signs/Intake and Output Vital Signs (last 24 hours): Temp Pulse Resp BP Pulse Ox 97.7 F 60 20 99/64 L 99 01/04/18 07:41 01/04/18 07:41 01/04/18 07:41 01/04/18 07:41 01/04/18 07:41 Intake and Output: 01/04/18 01/04/18 06:59 18:59 Intake Total 880 Balance 880 - Medications Medications: Current Medications Heparin Sodium (Porcine) (Heparin) 5,000 units SC BID [facility] Influenza Virus Vaccine (Fluzone Quad [id number]) 60 mcg IM .ONCE ONE Stop: 01/04/18 10:01 Morphine Sulfate (Morphine) 2 mg IVP Q6 PRN PRN Reason: Pain, severe (8-10) Last Admin: 01/03/18 21:30 Dose: 2 mg Pantoprazole Sodium (Protonix Ec Tab) 20 mg PO DAILY [facility] Last Admin: 01/03/18 17:50 Dose: 20 mg Pneumococcal Polyvalent Vaccine (Pneumovax 23 Vaccine) 0.5 ml IM .ONCE ONE Stop: 01/05/18 10:01 Prednisone (Prednisone Tab) 40 mg PO DAILY [facility] Last Admin: 01/03/18 10:41 Dose: 40 mg - Labs Labs: 01/04/18 07:03 01/04/18 07:03 - Constitutional Appears: Non-toxic, No Acute Distress, Chronically Ill - Head Exam Head Exam: NORMAL INSPECTION - Eye Exam Eye Exam: EOMI, Normal appearance - ENT Exam ENT Exam: Mucous Membranes Moist, Normal Exam - Respiratory Exam Respiratory Exam: Clear to Ausculation Bilateral, NORMAL BREATHING PATTERN - Cardiovascular Exam Cardiovascular Exam: REGULAR RHYTHM, +S1, +S2 - GI/Abdominal Exam GI & Abdominal Exam: Soft, Normal Bowel Sounds. absent: Tenderness - Extremities Exam Extremities Exam: Full ROM, Normal Inspection - Psychiatric Exam Psychiatric exam: Normal Affect, Normal Mood - Skin Skin Exam: Dry, Normal Color Assessment and Plan - Assessment and Plan (Free Text) Assessment: Abdominal pain History of crohn's disease Medical non-compliance CT imaging reviewed by me showing ileal mural wall thickening, no evidence of obstructive pathology Plan: - Tolerated low residual diet. - Continue prednisone 40mg daily for uncontrolled Crohns. This will need to be weaned by 5mg per week over several weeks so patient can have time to make appointment with outpatient GI for further follow up. This was reinforced with patient who understood. Unfortunately, patient did not make an effort to call insurance company to find which GI physician is covered. - Patient is clinically stable and OK for discharge from GI perspective. - Smoking cessation counseling - Quant Gold PENDING. Hepatitis panel normal. - Patient would benefit from endoscopic evaluation to assess disease severity and extent, this should be scheduled electively as outpatient following resolution of acute inflammatory process - Bowel regimen of miralax as needed if patient continues to have constipation due to opiates. <Jeff Pepe - Last Filed: 01/04/18 09:12> Objective - Vital Signs/Intake and Output Vital Signs (last 24 hours): Temp Pulse Resp BP Pulse Ox 97.7 F 60 20 99/64 L 99 01/04/18 07:41 01/04/18 07:41 01/04/18 07:41 01/04/18 07:41 01/04/18 07:41 Intake and Output: 01/04/18 01/04/18 06:59 18:59 Intake Total 880 Balance 880 - Medications Medications: Current Medications Heparin Sodium (Porcine) (Heparin) 5,000 units SC BID [facility] Influenza Virus Vaccine (Fluzone Quad [id number]) 60 mcg IM .ONCE ONE Stop: 01/04/18 10:01 Morphine Sulfate (Morphine) 2 mg IVP Q6 PRN PRN Reason: Pain, severe (8-10) Last Admin: 01/03/18 21:30 Dose: 2 mg Pantoprazole Sodium (Protonix Ec Tab) 20 mg PO DAILY [facility] Last Admin: 01/03/18 17:50 Dose: 20 mg Pneumococcal Polyvalent Vaccine (Pneumovax 23 Vaccine) 0.5 ml IM .ONCE ONE Stop: 01/05/18 10:01 Prednisone (Prednisone Tab) 40 mg PO DAILY [facility] Last Admin: 01/03/18 10:41 Dose: 40 mg - Labs Labs: 01/04/18 07:03 01/04/18 07:03 Attending/Attestation - Attestation I have personally seen and examined this patient.: Yes I have fully participated in the care of the patient.: Yes I have reviewed all pertinent clinical information, including history, physical exam and plan: Yes Notes (Text): 01/04/18 09:09 I have seen and examined patient with GI fellow. No acute events overnight, he continues to endorse abdominal pain, worse after meal consumption though slightly improved. No bowel movements since arrival to hospital. He otherwise denies nausea, vomiting, fever/chills. Crohn's disease Abdominal pain, disease exacerbation - Low residue diet as tolerated - Continue with prednisone therapy, plan to taper by 5 mg per week - Suggest use of miralax to facilitate bowel movement and prevent recurrent constipation - Smoking cessation counseling, particularly given underlying CD - Patient will require additional outpatient GI follow up, encouraged patient to obtain appointment prior to leaving hospital. No further planned GI interventio n, will sign off case. Please reconsult as necessary, thank you.
[2018-01-04] MEDS ORDERED: POLYETHYLENE GLYCOL 3350 17 GM/Dose PACKET PO PRN (09:13)
[2018-01-04] MEDS: Pantoprazole 20 mg EC Tab PO SCH (09:48)
[2018-01-04] MEDS ORDERED: Influenza Vaccine 60 MCG/0.5 ML SYR (3 yr & up) IM ONE (10:00)
--- NOTE | 2018-01-04 14:13 | CP.PCM.PN ---
Subjective - Date & Time of Evaluation Date of Evaluation: 01/04/18 Time of Evaluation: 14:12 - Subjective Subjective: 27-year-old male, PMHx includes Chrohn's disease, presents to the emergency department with complaints of diarrhea. Patient states he was diagnosed with Crohn's disease in 2013 in [facility] and given medications until the beginning of 2014, but then he lost his insurance and has not followed up since. Patient comes in today because he has been experiencing diarrhea everyday for the past several days, but over the past two days, pain has worsened associated with vomiting. States he has lost more than 40lbs in the past few months. He denies fever, chest pain, symptoms GI consult was called in. Patient was managed with by mouth prednisone 40 mg to be tapered off. No endoscopy was done. Patient was advised to follow up outpatient GI service. Patient further had no abdominal pain diarrhea nausea or vomiting. Patient is stable for discharge. Objective - Vital Signs/Intake and Output Vital Signs (last 24 hours): Temp Pulse Resp BP Pulse Ox 97.7 F 60 20 99/64 L 99 01/04/18 07:41 01/04/18 07:41 01/04/18 07:41 01/04/18 07:41 01/04/18 07:41 Intake and Output: 01/04/18 01/04/18 11:59 23:59 Intake Total 480 Balance 480 - Medications Medications: Current Medications Heparin Sodium (Porcine) (Heparin) 5,000 units SC BID [facility] Last Admin: 01/04/18 09:49 Dose: 5,000 units Morphine Sulfate (Morphine) 2 mg IVP Q6 PRN PRN Reason: Pain, severe (8-10) Last Admin: 01/03/18 21:30 Dose: 2 mg Pantoprazole Sodium (Protonix Ec Tab) 20 mg PO DAILY [facility] Last Admin: 01/04/18 09:48 Dose: 20 mg Pneumococcal Polyvalent Vaccine (Pneumovax 23 Vaccine) 0.5 ml IM .ONCE ONE Stop: 01/05/18 10:01 Polyethylene Glycol (Miralax) 17 gm PO DAILY PRN PRN Reason: Constipation Prednisone (Prednisone Tab) 40 mg PO DAILY [facility] Last Admin: 01/04/18 09:48 Dose: 40 mg - Labs Labs: 01/04/18 07:03 01/04/18 07:03 Assessment and Plan (1) Exacerbation of Crohn's disease Status: Acute (2) Abdominal pain Status: Acute
[2018-01-05] MEDS ORDERED: Pneumococcal 23-Valent Vaccine IM ONE (10:00)
== END 2018-01-04 16:53 | disposition home or self-care (01) | DRG 245 ==
LOC: C.ER 08:37 → C.9E 14:45 → C.3T 16:56
PROVIDERS: ADMIT Internal Medicine Cardiovascular Disease; ATTEND Internal Medicine Cardiovascular Disease
DX: K50.90 Crohn's disease, unspecified, without complications (principal); F17.210 Nicotine dependence, cigarettes, uncomplicated; F12.90 Cannabis use, unspecified, uncomplicated; G89.29 Other chronic pain; R10.9 Unspecified abdominal pain; Z59.0 Homelessness; Z91.14 Patient's other noncompliance with medication regimen

== ENCOUNTER 2018-01-06 06:05 | Emergency (ER) | payer MEDICAID ==
[2018-01-06 06:34] LABS: BASO # 0.1 K/uL (0.0-0.2); BASO % 0.4 % (0.0-2.0); EOS % 0.1 % (0.0-4.0); HEMOGLOBIN 12.2 g/dL (12.0-18.0); LYMPH # 1.6 K/uL (1.0-4.3); LYMPH % 11.6 % (20.0-40.0); MEAN CELL VOLUME 82.1 fL (80.0-94.0); MEAN CORPUSCULAR HEMOGLOBIN 26.7 pg (27.0-31.0); MEAN CORPUSCULAR HGB CONC 32.6 g/dL (33.0-37.0); MEAN PLATELET VOLUME 8.1 fL (7.2-11.7); MONO # 0.8 K/uL (0.0-0.8); MONO % 6.2 % (0.0-10.0); NEUT % 81.7 % (50.0-75.0); RBC 4.57 Mil/uL (4.40-5.90); RED CELL DISTRIBUTION WIDTH 15.5 % (11.5-14.5); WHITE BLOOD COUNT 13.5 K/uL (4.8-10.8)
[2018-01-06] MEDS ORDERED: Sodium Chloride 0.9% 1,000 ML IV STA (06:36)
--- NOTE | 2018-01-06 06:43 | C.PDOC ---
History Of Present Illness 27 year old male with PMHx of Crohn's Disease presents to the ED complaining of abdominal pain and diarrhea. Complains of extremity pain and generalized myalgias. Also notes he is unable to eat or drink. Reports he was discharged fr om the ED 2 days ago for similar presentation but when he left the hospital he started feeling worse. He was admitted under Dr. Pepe's service and was given steroids. Patient was instructed to follow up as outpatient. States he is going to his PMD on Monday to schedule appointment with GI specialist. Time Seen by Provider: 01/06/18 06:36 Chief Complaint (Nursing): Abdominal Pain History Per: Patient History/Exam Limitations: no limitations Onset/Duration Of Symptoms: Days (2) Current Symptoms Are (Timing): Still Present Location Of Pain/Discomfort: Diffuse Associated Symptoms: Loss Of Appetite. denies: Fever, Chills, Nausea, Vomiting, Urinary Symptoms Past Medical History Reviewed: Historical Data, Nursing Documentation, Vital Signs Vital Signs: Last Vital Signs Temp 97.8 F 01/06/18 06:17 Pulse 85 01/06/18 06:17 Resp 16 01/06/18 06:17 BP 101/61 01/06/18 06:17 Pulse Ox 98 01/06/18 06:17 - Medical History PMH: Crohn's Disease Denies: Diabetes, Hepatitis, HIV, HTN, Seizures, Sexually Transmitted Disease Surgical History: No Surg Hx Family History: States: No Known Family Hx - Social History Hx Alcohol Use: No Hx Substance Use: Yes - Immunization History Hx Tetanus Toxoid Vaccination: No Hx Influenza Vaccination: No Hx Pneumococcal Vaccination: No Review Of Systems Except As Marked, All Systems Reviewed And Found Negative. Constitutional: Positive for: Weakness, Other (loss of appetite ). Negative for: Fever, Chills Gastrointestinal: Positive for: Abdominal Pain. Negative for: Nausea, Vomiting, Diarrhea Musculoskeletal: Positive for: Other (extremity pain ) Physical Exam - Physical Exam Appears: Non-toxic, Other (thin appearing ) Skin: Warm, Dry Head: Normacephalic Eye(s): bilateral: Normal Inspection Nose: Normal Oral Mucosa: Moist Neck: Normal ROM, Supple Cardiovascular: Rhythm Regular Respiratory: Normal Breath Sounds, No Rales, No Rhonchi, No Wheezing Gastrointestinal/Abdominal: Soft, Tenderness (diffused tenderness ), No Guarding, No Rebound Extremity: Normal ROM Neurological/Psych: Oriented x3, Normal Speech Gait: Steady ED Course And Treatment - Laboratory Results Result Diagrams: 01/06/18 06:28 01/06/18 06:28 O2 Sat by Pulse Oximetry: 98 (RA) Pulse Ox Interpretation: Normal Progress Note: Blood and Urine collected for analysis. Patient given Morphine and IV fluids. Case was signed out to Sandie at 7 am. 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 - Scribe Statement The provider has reviewed the documentation as recorded by the Scribe Renay Burton All medical record entries made by the Scribe were at my direction and per sonally dictated by me. I have reviewed the chart and agree that the record accurately reflects my personal performance of the history, physical exam, medical decision making, and the department course for this patient. I have also personally directed, reviewed, and agree with the discharge instructions and disposition. Physician Patient Turnover Patient Signed Over To: Holley Shay Handoff Comments: labs, re-eval, dispo Decision To Admit - . Patient Diagnosis: Abdominal pain, Myalgia
[2018-01-06 06:52] LABS: ALB/GLOB RATIO 1.7 (1.0-2.1); ALBUMIN 4.1 g/dL (3.5-5.0); ALT/SGPT 32 U/L (21-72); AST/SGOT 38 U/L (17-59); BLOOD UREA NITROGEN 15 mg/dL (9-20); CALCIUM 8.6 mg/dl (8.6-10.4); GFR NON-AFRICAN AMERICAN > 60
[2018-01-06] MEDS ORDERED: Morphine 4 MG/ML VIAL ONE (06:56)
[2018-01-06 08:09] LABS: URINE BILIRUBIN NEGATIVE (NEGATIVE); URINE BLOOD NEGATIVE (NEGATIVE); URINE CLARITY Clear (Clear); URINE COLOR Straw (YELLOW); URINE GLUCOSE (UA) NORMAL (Normal); URINE LEUKOCYTE ESTERASE NEG Leu/uL (Negative); URINE PROTEIN NEGATIVE (NEGATIVE); URINE UROBILINOGEN NORMAL mg/dL (0.2-1.0)
[2018-01-06 08:39] VITALS: PULSE 67; RESP 18; TEMP 97.3; O2SAT 99
[2018-01-06 09:00] VITALS: BP 106/68
== END 2018-01-06 09:15 | disposition home or self-care (01) ==
LOC: C.ER 06:05
DX: M79.10 Myalgia, unspecified site (principal); R10.9 Unspecified abdominal pain
CPT/HCPCS: 36415; 80053; 81001; 82150; 82550; 83690; 83735; 85025; 96374; 99284; J2270; J7030

== ENCOUNTER 2018-01-08 01:13 | Emergency (ER) | payer MEDICAID ==
[2018-01-08 01:28] VITALS: BP 106/73; PULSE 77; RESP 16; TEMP 97.3; O2SAT 99
--- NOTE | 2018-01-08 01:32 | C.PDOC ---
History Of Present Illness 27 y/o male with hx crohns disease c/o left leg pain with swelling since he was started on prednisone a few days ago for a flare of his crohns. pt denies cp and sob. pt not taking anything for pain. denies abdominal pain at this time. no fever or chills. Time Seen by Provider: 01/08/18 01:23 Chief Complaint (Nursing): Lower Extremity Problem/Injury History Per: Patient History/Exam Limitations: no limitations Onset/Duration Of Symptoms: Days (4) Current Symptoms Are (Timing): Still Present Severity: Moderate Past Medical History Reviewed: Historical Data, Nursing Documentation, Vital Signs Vital Signs: Last Vital Signs Temp 97.3 F L 01/08/18 01:25 Pulse 77 01/08/18 01:25 Resp 16 01/08/18 01:25 BP 106/73 01/08/18 01:25 Pulse Ox 99 01/08/18 01:25 - Medical History PMH: Crohn's Disease Denies: Diabetes, Hepatitis, HIV, HTN, Seizures, Sexually Transmitted Disease Family History: States: Unknown Family Hx - Social History Hx Alcohol Use: No Hx Substance Use: Yes - Immunization History Hx Tetanus Toxoid Vaccination: No Hx Influenza Vaccination: No Hx Pneumococcal Vaccination: No Review Of Systems Constitutional: Negative for: Fever, Chills Cardiovascular: Negative for: Chest Pain Respiratory: Negative for: Shortness of Breath Gastrointestinal: Negative for: Nausea, Vomiting, Abdominal Pain Musculoskeletal: Positive for: Leg Pain (left) Skin: Negative for: Rash Neurological: Negative for: Weakness, Numbness Physical Exam - Physical Exam Appears: Non-toxic, No Acute Distress Skin: Warm, Dry Head: Atraumatic, Normacephalic Neck: Supple Extremity: Normal ROM (x 4 extremities), No Tenderness (x4 extremities), No Pedal Edema, No Calf Tenderness, No Swelling, Other (no erythema or warmth to lower left extremity. ) Extremity: Bilateral: Atraumatic, No Pedal Edema, Normal Color And Temperature, Normal ROM Pulses: Left Dorsalis Pedis: Normal, Right Dorsalis Pedis: Normal Neurological/Psych: Oriented x3, Normal Speech, Normal Cognition, Normal Motor, Normal Sensation ED Course And Treatment O2 Sat by Pulse Oximetry: 99 Medical Decision Making Medical Decision Making: pt admitted to [facility] on 01/02-01/04 for Crohn's flare, discharged on prednisone. Returned to [facility] on 01/06 for continuing abdominal pain and diffuse myalgias, had labs (including cpk);he was signed out to me and I discharged him on 01/06 with rx for Tylenol, tramadol and ibuprofen. pt went to [place] ED for same complaints later in the day; pt had labs drawn again and was discharged. unclear if pt made appointment for follow up. pt sts she has not taken anything for his leg pain. pt has normal musculoskeletal exam; advised to take medications prescribed to him the other day and return to ed for doppler tomorrow, very low suspicion for dvt. Disposition Counseled Patient/Family Regarding: Diagnosis, Need For Followup - Disposition Disposition: HOME/ ROUTINE Disposition Time: 01:31 Condition: GOOD Additional Instructions: Return to ER tomorrow between 8 am and 2 pm to get ultrasound of your leg to check for a blood clot. Take Tylenol or Motrin for pain. Instructions: Muscle and Bone Pain (DC) Forms: [facility] ([place]), General Discharge Instructions - Clinical Impression Clinical Impression: Pain in left lower leg
== END 2018-01-08 01:38 | disposition home or self-care (01) ==
LOC: C.ER 01:13
DX: M79.662 Pain in left lower leg (principal)